=== PATIENT | male | born 1985 | race Caucasian/White ===

== ENCOUNTER → 2017-03-15 | Day surgery (SDC) | payer OTHER ==
[~2017-03-15] VITALS: Ht 170.2 cm; Wt 110.7 kg
[~2017-03-15] MED LIST: ACET325T51 PO; AMLO10TA3 PO; CHOL10008 PO; INFL100V IV; OXYC5TAB72 PO; POLY17PO6 PO; Sodium Chloride LOK Flush 10 mL Syringe IV PRN; [UNRECOGNIZED DRUG - REMARK]; fentaNYL-PF 50 mCg/mL 2 mL Inj IVPUSH PRN; remicade
[2017-03-15 12:42] VITALS: BP 149/91; PULSE 90; RESP 16; O2SAT 98
[2017-03-15] MEDS: 0.9% Sodium Chloride 1,000 ML IV SCH ×3 (12:50→15:15)
[2017-03-15 13:56] VITALS: BP 154/82; PULSE 97; RESP 12; O2SAT 93
[2017-03-15 14:06] VITALS: BP 146/80; PULSE 96; RESP 12; O2SAT 96
--- NOTE | 2017-03-15 14:14 | ENDO ---
[address] [address] ENDOSCOPY PROCEDURE PATIENT: JENNY BAILEY : 1985 MR#: [id number] ADMIT: 03/15/2017 JOB ID: [id number] DATE: 03/15/2017 TYPE OF OPERATION: 1. Esophagogastroduodenoscopy with biopsy. 2. Colonoscopy with biopsy. PREOP: Crohn disease, abnormal CAT scan and diarrhea. POSTOPERATIVE DIAGNOSIS(ES): 1. A 2 cm duodenal polyp found in the second portion, status post biopsy. 2. A colonic stricture that was seen at 30 cm with friable mucosa which was biopsied. The scope could not transverse through the stricture. ANESTHESIA: 1. Fentanyl 200 mcg. 2. Versed 10 mg IV administered. COMPLICATIONS: None. BLOOD LOSS: Minimal. DESCRIPTION OF PROCEDURE: After risks and benefits were explained to the patient, informed consent was obtained. After anesthesia administered, an upper endoscope was then inserted into mouth intubating the esophagus, stomach, second portion of duodenum. Mucosa carefully examined. After procedure was done, the scope withdrawn and procedure terminated. Colonoscope was then inserted from the rectum to the sigmoid colon at 30 cm. Mucosa carefully examined. Prep of the patient was fair. After procedure was done, the scope withdrawn and procedure terminated. FINDINGS: Upon inspection of the esophagus, the esophagus was normal without masses, ulcers, or lesions. Z-line located at 40 cm from incisors. Upon entering the stomach, the stomach also appeared normal without masses, ulcers or lesions. Retroflexion was normal. Duodenal bulb, first and second portion were normal, but there was a polyp seen in the second portion of the duodenum which was biopsied, approximately 2 cm in size. Biopsies also taken of the duodenum, antrum and body of stomach. Upon inspection of the anus, no masses, hemorrhoids, ulcers, fissures that were seen. Throughout the entire examination, there was friable mucosa and a stricture that was seen at 30 cm in which the scope could not pass. This area was biopsied. Retroflexion was not performed. IMPRESSIONS: 1. A 2 cm duodenal polyp seen in the second portion, status post biopsy. 2. Distal colonic stricture that was seen at 30 cm from the anus status post biopsy. The scope could not transverse. RECOMMENDATIONS: Await pathology results and general surgery consultation.
[2017-03-15 14:22] VITALS: BP 136/88; PULSE 97; RESP 12; O2SAT 96
[2017-03-15 14:42] VITALS: BP 137/79; PULSE 90; RESP 12; O2SAT 94
[2017-03-15 15:10] VITALS: BP 125/70; PULSE 82; RESP 12; O2SAT 92
--- NOTE | 2017-03-15 20:20 | CONS ---
[address] [address] CONSULTATION REPORT PATIENT: JENNY BAILEY : 1985 MR#: [id number] ADMIT: 03/15/2017 JOB ID: [id number] DATE OF SERVICE: 03/15/2017 CHIEF COMPLAINT: This is a 31-year-old male with a stricture of the sigmoid colon and a history of Crohn disease; this consultation is requested by Ulises Barclay MD, of Gastroenterology. HISTORY OF PRESENT ILLNESS: This is a 31-year-old male who has carried a diagnosis of Crohn disease for the past 20 years. His previous surgical history involves treatment of perirectal abscesses and fistulas, which occurred while he was on Remicade. He has undergone therapy with multiple medications including Remicade, Humira,Imuran, 6-mercaptopurine, Asacol, and Pentasa. He was seen by Ulises Barclay MD, on February 14 as an outpatient. He was having 6-8 bowel movements per day which were loose and nonbloody. He was scheduled for upper and lower endoscopy. Colonoscopy showed a stricture at 30 cm which could not be passed with the pediatric colonoscope. Upper endoscopy showed a 2 cm duodenal polyp. Both the stricture and the polyp were biopsied and pathology is pending. Recent CT scan reveals dilation proximal to the stricture of the sigmoid colon. PAST MEDICAL HISTORY: Crohn disease. Hypertension and anemia. PAST SURGICAL HISTORY: Incision and drainage of perirectal abscesses and fistulas. MEDICATIONS: Remicade, vitamin D3, amlodipine. ALLERGIES: No known drug allergies. FAMILY HISTORY: Cousins have had colitis. SOCIAL HISTORY: He lives in [place] with his mother, who is present today. He is not a smoker and denies alcohol use. He does not use recreational drugs. He is not currently employed. REVIEW OF SYSTEMS: Eleven-point review of systems is positive as noted in the HPI and is otherwise negative. PHYSICAL EXAMINATION: Heart rate 82, blood pressure 125/70, respiratory rate of 12, saturation 92% on room air. General: Awake, alert, no acute distress. Head: Normocephalic. Neck: Supple. Cardiac: Regular rate and rhythm, no murmurs, rubs, or gallops. Respiratory: Clear to auscultation bilaterally. Abdomen: Soft, moderately distended; he had just finished colonoscopy when I met him. Nontender. Extremities: No edema. Psychiatric: Normal cognition and judgment. Neurologic: No gross deficits. LABS: Labs dated March 01, 2017, showed hematocrit 34.8, white blood cell count of 4.2, platelets 392. Comprehensive metabolic panel is within normal limits. CT scan, performed March 12, 2017, shows inflammation and stricturing of the descending and sigmoid colon. The colon is dilated proximally to this and fecal material is within it. ASSESSMENT: A 31-year-old male with Crohn disease, refractory to at least six different medications including Remicade and Humira, who has a stricture in the descending/sigmoid colon that was not possible endoscopically. He has some dilation of bowel proximal to this on CT scan. He is currently tolerating a regular diet and tolerated a colonoscopy prep. RECOMMENDATIONS: Await pathology results from today's endoscopy. Based on the overall picture, I anticipate resection of the strictured portion of bowel will be necessary given that this has formed despite significant medical therapy. He does have followup in the office with one of my partners on Saturday, and I do recommend that he proceed with this visit while we wait for the pathology results to return. 45 minutes were spent on this patient visit today, >50% in counseling and/or coordination of care. ROSALBA
--- NOTE | 2017-03-21 16:34 | PATH ---
SURGICAL PATHOLOGY Attending Physician:Ulises Barclay MD CASE STATUS: Signed Out PATIENT NAME: JENNY BAILEY PID: [id number] : 1985 DATE COLLECTED:03/15/2017 00:00 SPECIMEN: 1: Duodenum, Biopsy 2: Duodenum, Biopsy 3: Stomach, Antrum, Biopsy 4: Gastric, Biopsy 5: Colon, Biopsy CLINICAL HISTORY: 1). DUODENAL POLYP X 1 2). DUODENAL BIOPSY 3). ANTRUM BIOPSY 4). GASTRIC BODY BIOPSY 5). COLON STRICTURE AT 30 CM FINAL DIAGNOSIS: 1.DUODENAL POLYP X1, BIOPSY: - POLYPOID FRAGMENT OF SMALL BOWEL MUCOSA WITH HYPERPLASTIC FEATURES, FEW DIALTATED CRYPTS AND MILD ACTIVE INFLAMMATION. - NO EVIDENCE OF GRANULOMAS. - Negative for dysplasia and malignancy. - Additional deeper levels examined. 2.DUODENAL BIOPSY: - SMALL BOWEL MUCOSA WITH NO DIAGNOSTIC ABNORMALITY. - Negative for active inflammation, features of sprue, granulomas, dysplasia, and malignancy. 3.ANTRUM, BIOPSY: - GASTRIC ANTRAL-TYPE MUCOSA WITH CHRONIC ACTIVE GASTRITIS. - No evidence of granulomas. - Negative for Helicobacter pylori microorganisms by immunohistochemistry. - Negative for intestinal metaplasia. - Negative for dysplasia and malignancy. 4.GASTRIC BODY BIOPSY: - GASTRIC BODY-TYPE MUCOSA WITH CHRONIC FOCALLY ACTIVE GASTRITIS. - No evidence of granulomas. - Negative for Helicobacter pylori microorganisms by immunohistochemistry. - Negative for intestinal metaplasia. - Negative for dysplasia and malignancy. 5.COLON STRICTURE AT 30 CM, BIOPSY: - FRAGMENTS OF COLONIC MUCOSA WITH PATCHY, MILDLY ACTIVE COLITIS, WITH MILD CRYPT ARCHITECTURAL DISTORTION. - MULTIPLE NON-CASEATING GRANULOMAS ARE IDENTIFIED. - Negative for dysplasia and malignancy. - See comment. [id number] NOTE: Part 5) designated colon stricture at 30 cm, demonstrates patchy mildly active colitis with mild crypt architectural distortion, and scattered noncaseating granulomas. In the proper clinical setting and following exclusion of infectious etiology, the histopathologic appearance could support a clinical impression of idiopathic inflammatory bowel disease, favor Crohn' s. The differential diagnosis also includes medication and medication-related mucosal injury. As part of routine supplier quality engineer sections of this case were also reviewed by Dr. Stroud who agrees with the above interpretation. GROSS DESCRIPTION: The specimen is received in five formalin filled containers labeled with the patient's name. 1). The specimen is labeled "duod polyp" and consists of 2 portions of tissue which aggregate to 0.2 x 0.2 x 0.2 CM. The specimen is entirely submitted in cassettes 1A. 2). The specimen is labeled "duod" and consists of 2 portions of tissue which aggregate to 0.3 x 0.2 x 0.2 CM. The specimen is entirely submitted in cassette 2A. 3). The specimen is labeled "antrum" and consists of a 0.4 x 0.3 x 0.3 CM portion of tissue which is entirely submitted in cassette 3A. 4). The specimen is labeled "body" and consists of 2 portions of tissue which aggregate to 0.3 x 0.3 x 0.2 CM. The specimen is entirely submitted in cassette 4A. 5). The specimen is labeled "stricture 30 CM" and consists of 3 portions of tissue which aggregate to 0.2 x 0.2 x 0.2 CM. The specimen is totally submitted in cassette 5A. 03/18/2017DC MICRO DESCRIPTION: 3. & 4. An immunohistochemical stain was performed to evaluate for Helicobacter pylori microorganisms. A control stain showed appropriate reactivity. This test was developed and its performance characteristics determined by [employer]. It has not been cleared or approved by the U. S. Food and Drug Administration. The FDA has determined that such clearance or approval is not necessary. This test is used for clinical purposes. It should not be regarded as investigational or for research. ICD-9 CODES: CPT CODES: 1: 93473 2: 55219 3: 30581, 73243 4: 75434, 68173 5: 46246 Electronically Signed Out Saji Arredondo MD [facility] Pathology [facility] [address], [place] [address] Technical component performed at [facility], [address], [place], [address]
== END | disposition home or self-care (01) ==
LOC: END 00:13
PROVIDERS: ATTEND Internal Medicine Gastroenterology
DX: K52.89 Other specified noninfective gastroenteritis and colitis (principal); K29.50 Unspecified chronic gastritis without bleeding; R19.7 Diarrhea, unspecified; K50.819 Crohn's disease of both small and large intestine with unspecified complications; K61.1 Rectal abscess; Z80.0 Family history of malignant neoplasm of digestive organs; K31.7 Polyp of stomach and duodenum; K56.69 Other intestinal obstruction
CPT/HCPCS: 43239; 45380; 88305; 88342; 99152; 99153; J2250; J3010; J7030

== ENCOUNTER 2017-03-28 07:08 | Inpatient (IN) | payer OTHER, MEDICAID ==
[2017-03-28] VITALS (18 sets, daily range): BP systolic 128–155; BP diastolic 69–96; PULSE 87–112; RESP 14–29; O2SAT 92–98
[~2017-03-28] VITALS: Ht 167.6 cm; Wt 114.4 kg
[~2017-03-28 07:08] MED LIST changes: -CHOL10008 PO; +CeFAZolin Inj 2 GM in IV Premix 1 EACH IV ONE; -INFL100V IV; +Lactated Ringer's 1,000 ML IV SCH; -OXYC5TAB72 PO; -POLY17PO6 PO; -Sodium Chloride LOK Flush 10 mL Syringe IV PRN; -fentaNYL-PF 50 mCg/mL 2 mL Inj IVPUSH PRN
[2017-03-28] MEDS ORDERED: CeFAZolin 2 Gm/50 mL D5W Duplex Bag IV ONE (07:11)
[2017-03-28] MEDS ORDERED: metroNIDAZOLE 500 mg/100 mL NS Premix IV ONE (07:12)
[2017-03-28] MEDS ORDERED: Lactated Ringer's 1,000 ML IV ONE ×2 (08:02→17:45)
[2017-03-28] MEDS ORDERED: Lactated Ringer's 500 ML IV PRN (08:44)
[2017-03-28] MEDS ORDERED: Lactated Ringer's 1,000 ML IV SCH (08:44)
--- NOTE | 2017-03-28 08:44 | PCM.HPANE ---
Patient Data Date of Service: Mar 28, 2017 Surgeon Admitting Provider: Attending Provider:Negrita Rivas MD Primary Care Physician:Maria Eugenia Melgar Other Provider:Estefani Kim Anesthesia Reason for Visit Sigmoid Colon Stricture Ht/WT & BMI Height (Feet): 5 Height (Inches): 6.00 Weight (Kilograms): 113 Body Mass Index 40.00 Allergies Coded Allergies: No Known Allergies (Unverified , 03/21/17) Past Anesthesia History Anesthesia History: Positive for:: Anesthesia Reactions (wakes up with propofol , versed ), Denies:: Abnormal Airway, Difficult Intubation, Fam Anesthesia Reaction, Fam Malignant Hypertherm, Malignant Hyperthermia Diabetes History Hx Diabetes?: No MRSA MRSA: No Medications Hypertension Medication: Yes Home Meds Incl Beta Zachary: No Reported Medications ["eco-drink"] No Conflict CheckUnknown Dose DAILY 03/21/17 Acetaminophen 325 Mg [id number] Mg PO Q4H PRN For Pain Ref 0 03/21/17 Amlodipine 10 Mg [id number] Mg PO DAILY Ref 0 03/21/17 [remicade] No Conflict CheckUnknown Dose [id number] 03/21/17 Discontinued Reported Medications Cholecalciferol (Vitamin D3) (Vitamin D3)1,000 Unit Tab.chew1,000 Unit PO DAILY 03/13/17 Amlodipine 10 Mg [id number] Mg PO DAILY Ref 0 03/13/17 History History of ENT Problems?: No HEENT History: Positive for:: Hearing Problem (hx of tympanoplasty / left ear) Denies:: Abnormal Airway Cataracts Difficult Intubation Dysphagia Glaucoma Sinus Problem TMJ Denture Type: None Teeth Condition: Broken Teeth Hx of Heart Problems?: Yes Cardiovascular History: Positive for:: Heart Murmur (as child- no longer heard ) Hypertension Denies:: AICD Atrial Fibrillation Chest Pain Coronary Artery Disease Edema Irregular Heartbeat Pacemaker Peripheral Vascular Rheumatic Fever Valvular Heart Disease Hx of Respiratory Problem?: Yes Respiratory History: Positive for:: Use of C-PAP Machine Denies:: Asthma COPD Cough Hemoptysis Oxygen Administration Pneumonia Tuberculosis Hx Neurologic Problems?: Yes Neurological History: Positive for:: Headaches (low grade headaches usually - MRI negative) Denies:: CVA Dementia Multiple Sclerosis Parkinson's Disease Seizures TIA Hx of GI Problems?: Yes Other GI Pertinent History: crohns with sigmoid colon stricture current admission problem - hx of remicade infusions q 8weeks- last known infusion 01/2017 Hx of Problems?: No Genitourinary History: Denies:: Kidney Stones Urinary Tract Infection Male Hx: Denies:: Prostate Problems Scrotal Mass Testicular Surgery Skin History: Denies:: History Skin Disorders? Pressure Ulcers Hx Musculoskeletal Problems?: Yes Musculoskeletal History: Denies:: Back Injury (back pains while sleeping) Fibromyalgia Joint Replacement Myasthenia Gravis Osteoarthritis Hx of Psycho/Social Problems?: Yes Psycho Social History: Positive for:: Anxiety Hx Depression Hx Surgeries?: Yes (tympanoplasty, perianal fistula x 2) Hx Any Other Health Problems?: Yes Other History: Denies:: Cancer Thyroid Disease History Blood Transfusions: Positive for:: Accept Blood Products? Blood Transfusions (many years ago- pre teen r/t crohns disease) Denies:: Blood Transfuse Reaction Hx Diabetes: No Hx Alcohol Use: YesAlcoholic Drinks Per Day: once yearly maybeHx Substance Use : Yes (occassional marijuana)Have You Smoked inLast 12 mo: No Stop/Bang Treated for Sleep Apnea?: Yes Do You Have a CPAP Machine?: Yes S-Snoring: Do You Snore Loudly: No T-Tired: feel tired, fatigued: No O-Obsered: Observed not breath: No P-Blood Pressure: treated: Yes B- Body Mass Index > 35 kg/m2: No A- Age over 50: No N- Neck Large Circumference: No G- Gender Male: Yes MASON Total Score: 2 Risk Assessment Category Category 1A: Patient has history of documented sleep apnea, and HAS NOT received any narcotic, sedative or anesthesia administration during this stay. Category 1B: Patient has history of documented sleep apnea, and HAS received any narcotic , sedative or anesthesia administration during this stay Category 2: Patient has SUSPECTED Obstructive Sleep Apnea, and HAS received any narcotic , sedative or anesthesia administration during this stay. Category 3: Patient has SUSPECTED Obstructive Sleep Apnea and HAS NOT received narcotic, sedative or anesthesia administration during this stay. Category 4: Outpatient in Procedural Areas with known sleep apnea or who screen positive for High Risk via the STOP/BANG questionnaire. Exam Exam Vital Signs Vital Signs Date Time Temp Pulse Resp B/P Pulse Ox O2 Delivery O2 Flow Rate FiO2 03/28/17 08:04 36.7 87 17 151/94 98 Room Air General Appearance: Alert, Oriented X3, Cooperative HEENT/AIRWAY: MP 2, Neck Movement (Slightly thick, Full), Mouth Opening Lungs: Clear to Auscultation, Normal Air Movement Heart: Regular Rate/Rhythm, Normal S1, Normal S2 Meds/Labs/Diagnostics Admission Meds Current Medications Lactated Ringer's (Lr) 1,000 ml @ ud STK-MED ONCE IV Last administered on t 08:02; Start 03/28/17 at 08:02; Stop 03/28/17 at 08:03; Status DC Plan Impression Patient chart reviewed, patient interviewed and anesthestic plan with risks, benefits, and alternatives discussed, and informed consent obtained. NPO per Anesth. Guidelines: Yes ASA Physical Status: ASA3 Severe Disease (morbid) Anesthetic Plan: GA Bene/Risks/Altern/Consents: Yes HP Complete Prior to Induction: Yes Daniel Martinez MD Mar 28, 2017 08:44
[2017-03-28] MEDS ORDERED: MetoCLOpramide 5 mg/mL 2 mL Inj IVPUSH PRN ×2 (08:45→18:10)
[2017-03-28] MEDS ORDERED: Labetalol 5 mg/mL 20 mL Inj IV PRN (08:45)
[2017-03-28] MEDS ORDERED: Atropine 0.4 mg/mL Inj IVPUSH PRN (08:45)
[2017-03-28] MEDS ORDERED: Phenylephrine 10,000 mCg/mL Inj IVPUSH PRN (08:45)
[2017-03-28] MEDS ORDERED: Ondansetron 2 mg/mL 2 mL Inj IVPUSH PRN (08:45)
[2017-03-28] MEDS ORDERED: Dexamethasone 4 mg/mL Inj IVPUSH PRN (08:45)
[2017-03-28] MEDS ORDERED: EPHEDrine Sulfate 50 mg/mL Inj IVPUSH PRN (08:45)
[2017-03-28] MEDS ORDERED: hydrALAZINE 20 mg/mL Inj IVPUSH PRN (08:45)
[2017-03-28] MEDS ORDERED: Bupivacaine-MPF 0.5% 30 mL Inj INFILTRATE ONE (10:25)
[2017-03-28] MEDS ORDERED: HYDROGEN PEROXIDE 3% TOPICAL ONE (10:25)
[2017-03-28] MEDS ORDERED: Bupivacaine-MPF 0.25% 30 mL Inj INFILTRATE ONE (11:28)
[2017-03-28] MEDS ORDERED: Bupivacaine Liposome 1.3% 20 mL Inj ONE (16:50)
[2017-03-28] MEDS ORDERED: Bupivacaine Liposome 1.3% 20 mL Inj INFILTRATE ONE (17:14)
[2017-03-28] MEDS: fentaNYL-PF 50 mCg/mL 2 mL Inj IVPUSH PRN ×4 (18:15→19:35)
[2017-03-28] MEDS: HYDROmorphone 1 mg/mL Inj IVPUSH PRN ×4 (18:20→19:35)
--- NOTE | 2017-03-28 18:28 | PCM.SURGPO ---
Immediate Operative Note Date of Surgery: Mar 28, 2017 Pre Operative Diagnosis Crohn's disease with sigmoid stricture and perianal fistula Post Operative Diagnosis Crohn's disease with sigmoid stricture and perianal fistula Procedure 1. Rectal exam under anesthesia with seton placement 2. Flexible sigmoidoscopy 3. Laparoscopic, hand assisted sigmoid and left colectomy with Anamika's procedure Surgeon and C S S Representative Surgeon: Negrita Rivas MD Assistants: Neema Golden MD and JACKY Montalvo Findings 1. Perianal fistula 2. Mucosal inflammation and friability from 25 to 10 cm from the anal verge and from 5cm to the anal verge. 3. 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 Severe inflammatory Crohn's disease of the sigmoid colon with creeping fat and stricture at 25cm from the anal verge with mucosal inflammation and friability Complications There were no periprocedural complications identified. Surgical Specimen Removed: Yes (Sigmoid colon and left colon) Specimen sent to Pathology: Yes Anesthetic Administered: GA Grafts, Implants: None Output, Estimated Blood Loss: 50 Blood Admin during surgery: No Neema Golden MD Mar 28, 2017 18:28
--- NOTE | 2017-03-28 18:51 | PCM.ANEP1 ---
Post Anesthesia PACU Phase 1 Assessment Date of Service: Mar 28, 2017 Vital Signs Vital Signs Date Time Temp Pulse Resp B/P Pulse Ox O2 Delivery O2 Flow Rate FiO2 03/28/17 18:35 96 24 150/75 95 Simple Mask 8 03/28/17 18:30 95 24 150/84 95 Simple Mask 8 03/28/17 18:25 96 24 128/69 94 Simple Mask 8 03/28/17 18:20 97 24 136/89 94 Simple Mask 8 03/28/17 18:15 92 22 146/96 94 Simple Mask 8 03/28/17 18:10 37.2 90 14 155/82 94 Simple Mask 8 Anesthetic Administered: GA Level of Alertness: Sleepy, easy to arouse HERBERT's with Equal Strength: Yes Pain: Yes Nausea or Vomiting: No CV Function & Hydration Stable: Yes Airway Device: Oxygen Delivery: Simple Mask Lungs: Normal Air Movement PACU Phase 2 Assessment Complications: No Follow up Care: N/A Patient Instructions Provided: N/A Daniel Martinez MD Mar 28, 2017 18:51
[2017-03-28 19:19] LABS: BASOPHILS % (AUTO) 0.1 % (0-3); EOSINOPHILS % (AUTO) 0.1 % (0-5); MONOCYTES % (AUTO) 11.8 % (4-12); Mean Corpuscular Hemoglobin 23.7 pg (27.0-35.0); Mean Corpuscular Volume 76.5 fL (81-100); NEUTROPHILS % (AUTO) 85.9 % (40-74); Platelet Count 463 bil/L (150-400)
[2017-03-28] MEDS ORDERED: fentaNYL-PF 50 mCg/mL 2 mL Inj ONE (19:59)
[2017-03-28] MEDS ORDERED: Ondansetron 2 mg/mL 2 mL Inj ONE (19:59)
[2017-03-28] MEDS ORDERED: Rocuronium 10 mg/mL 5 mL Inj ONE ×2 (19:59)
[2017-03-28] MEDS ORDERED: Neostigmine 1 mg/mL 10 mL Inj ONE (19:59)
[2017-03-28] MEDS ORDERED: Propofol 10,000 mCg/mL 20 mL Inj ONE (19:59)
[2017-03-28] MEDS ORDERED: Glycopyrrolate 0.2 MG/ML 1mL Inj ONE (19:59)
[2017-03-28] MEDS ORDERED: Labetalol 5 mg/mL 20 mL Inj ONE (19:59)
[2017-03-28] MEDS ORDERED: HYDROmorphone 1 mg/mL Inj ONE (19:59)
--- NOTE | 2017-03-28 20:20 | OP ---
[address] [address] OPERATIVE REPORT PATIENT: JENNY BAILEY : 1985 MR#: [id number] ADMIT: 03/28/2017 JOB ID: [id number] DATE OF SURGERY: 03/28/2017 PREOPERATIVE DIAGNOSIS(ES): Colonic stricture. POSTOPERATIVE DIAGNOSIS(ES): Colonic stricture. PROCEDURE PERFORMED: Cystoscopy and bilateral ureteral stent placements. SURGEON: Yoly Arrieta MD FINDINGS: Normal appearing bladder. Bilateral orthotopic ureteral orifices. ANESTHESIA: General. ESTIMATED BLOOD LOSS: None. DRAINS: 1. 5-Martiniquais open-ended Pollack catheters as bilateral ureteral stents. 2. A 16-Martiniquais Mercedes catheter to the bladder. SPECIMENS: None. COMPLICATIONS: None. CONDITION: Stable. INDICATION FOR THE PROCEDURE: The patient is a 31-year-old gentleman who is to undergo surgery today with Dr. Rivas. She has requested bilateral ureteral stents for intraoperative identification of the ureters. I spoke with the patient and his mother the nature of ureteral stents and risks of. He wished to proceed. DESCRIPTION OF PROCEDURE: After informed consent was obtained, the patient was taken to the operating room. A time-out was performed identifying correct patient, surgical site, and procedure. General anesthesia was smoothly induced. He was placed in the lithotomy position and all pressure points were identified and appropriately padded. His genitals were then prepped and draped in usual sterile fashion. A 22-Martiniquais rigid cystoscope was applied to the patient's urethra and advanced smoothly. The bladder neck was somewhat high riding. Entry into the bladder was gained. The bladder was drained. Both ureteral orifices were seen in orthotopic position. The bladder appeared otherwise normal. The right ureteral orifice was cannulated with a 5-Martiniquais open-ended Pollack catheter. It was advanced until gentle resistance was met. The cystoscope was then removed. Attention was then turned to the left ureteral orifice and with cystoscopic guidance the left ureteral orifice was cannulated with the second Pollack catheter which was also advanced until gentle resistance was met. The cystoscope was then removed. A 16-Martiniquais Mercedes catheter was applied to the patient's urethra and advanced into the bladder. It was insufflated with 10 cc of sterile water. It was set to dependent drainage. The ureteral catheters were then adhered to the Mercedes with a 2-0 silk tie. The patient was then left in the care of the primary service. He appeared to tolerate the procedure well without apparent complications. ROSALBA
[2017-03-28] MEDS: HYDROmorphone 0.5 mg/0.5 mL iSecure Syringe IVPUSH PRN (21:04)
[2017-03-28] MEDS: Dextrose 5% Lactated Ringer's 1,000 ML IV SCH (21:11)
[2017-03-28] MEDS: Ondansetron 2 mg/mL 2 mL Inj IVPUSH PRN (21:50)
[2017-03-29] VITALS (9 sets, daily range): BP systolic 137–157; BP diastolic 77–92; PULSE 101–120; RESP 16–22; O2SAT 91–95
--- NOTE | 2017-03-29 00:02 | OP ---
[address] [address] OPERATIVE REPORT PATIENT: JENNY BAILEY : 1985 MR#: [id number] ADMIT: 03/28/2017 JOB ID: [id number] DATE OF SURGERY: 03/28/2017 PREOPERATIVE DIAGNOSIS(ES): Stricture secondary to Crohn's disease of the sigmoid colon; Crohn's disease of the rectum and perianal region. POSTOPERATIVE DIAGNOSIS(ES): Stricture secondary to Crohn's disease of the sigmoid colon; Crohn's disease of the rectum and perianal region. PROCEDURE PERFORMED: 1. Laparoscopic resection of left colon and sigmoid colon with end left colostomy. 2. Flexible sigmoidoscopy. 3. Perianal exam under anesthesia and rectal exam under anesthesia with seton placement for [id number]. 4. Liposomal bupivacaine blocks of rectus sheath. SURGEON: Negrita Rivas MD. ICE SKATING COACH: 1. Neema Golden MD, R3. 2. Mary Cullen MS3. HISTORY OF PRESENT ILLNESS: This is a 31-year-old male who has had a diagnosis of Crohn's disease for the past 20 years. He has had multiple perrectal abscesses and fistulas which have occurred while he was on multiple medical therapies. These have included Remicade, Humira, Imuran, 6-mercaptopurine, Asacol, and Pentasa. He was worked up by Dr. Deny MD, of Gastroenterology. A colonoscopy was performed on March 15, 2017. I was asked to see the patient urgently because at that time he had a severe stricture of the sigmoid colon at 30 cm, which could not be passed with an endoscope, and on CT scan he had proximal dilation. However, at that time, he was not having symptoms of obstruction so semi-urgent surgery was agreed upon before he would become obstructed. Prior to surgery, he underwent antibiotic and mechanical bowel prep, and all modifiable risk factors were addressed via SCOAP protocol. FINDINGS: 1. Severe scarring of the perianal region and distal rectum was a large open fistula in the left anterolateral position. 2. Stricture of the colon at 25 cm from the anal verge. 3. Crohn's involvement of the sigmoid colon and rectum as noted below. 4. 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 The appendix was in the upper midline. DESCRIPTION OF PROCEDURE: The patient was brought to the operating room and placed in supine position. General anesthesia was induced. A warming blanket and SCDs were placed. He was repositioned into lithotomy position. Ureteral stents were placed by Dr. Arrieta. Please see her separate dictation for details. After stent placement, he was positioned into high lithotomy. Examination under anesthesia revealed severe scarring of the perianal region and distal rectum. He had a very large wide open fistula at the left anterolateral position extending from 2 cm distal to the anal verge to 2 cm proximal to the anal verge. A blue vessel loop was placed through the fistula as a seton and was tied to itself. 0.5% Marcaine was injected to the perianal tissues for analgesia. Attention was turned to flexible sigmoidoscopy. The distal rectum was severely inflamed. The proximal rectum was moderately inflamed. From 5-15 cm there was mild inflammation from Crohn's. From 15-20 cm was moderate inflammation, and from 20-25 cm there was severe inflammation and friability. Due to these findings, particularly the fact that the entire sigmoid colon and rectum appeared at least mildly involved with Crohn's disease, the decision was made to not perform an anastomosis and to perform a Anamika's procedure. This was after discussion with my partner, Dr. Francisco Vuong, who had also met the patient in the clinic preoperatively. The patient was then repositioned into low lithotomy. The operative field was clipped, prepped, and draped in sterile fashion. A preprocedural pause was performed to confirm correct patient and site. A transverse infraumbilical incision was made and the abdomen was entered under direct vision using Neftaly technique. The abdomen was insufflated. Ultimately, four additional port sites were placed in the right lower quadrant, right upper quadrant, left lower quadrant, and low midline. The right lower quadrant port site was ultimately upsized to a 12 mm port for entrance of the stapler. Examination of the intra-abdominal contents revealed severe inflammation of the colon and its mesentery. Additionally, he appeared to have a degree of malrotation, with the cecum in the right upper quadrant, appendix traversing from the right upper quadrant to the midline, and the remainder of the colon on the left. The proximal colon was dilated but appeared otherwise normal. The midportion of the left colon was severely inflamed down to the rectum, which from an exterior view, appeared relatively normal. The decision was made to proceed with the distal dissection first and proceed proximally. A portion of rectum that had the most normal appearance was chosen near the pelvic brim and the peritoneum overlying it was divided. Dissection proceeded close to the colon itself and posterior to it to create a staple site which would leave the patient with an approximate 15 cm stump. Once an adequate window had been created and the ureter was confirmed to be carefully preserved, an Endo- FLAKITA stapler, 60 mm in length with a blue load, was fired. Two staple fires were required. Once the proximal end was divided, dissection proceeded from distal to proximal. There was very severe inflammation of the mesentery and it was extraordinarily thick. Dissection proceeded in this manner for greater than one hour and as progress slowed, a hand port was used via a 4 cm vertical incision above the umbilicus. This spread out the dissection and helped to mobilize the colon which had some inflammatory tissue attaching it to the lateral wall of the abdomen ( there was no formal white line of Toldt in this particular patient due to his malrotation) and also facilitated dissection of the omentum off of the proximal left colon (his transverse colon was verticalized given that the cecum during the operation was essentially lying in the midline of the upper abdomen). A LigaSure device was used to take the mesentery. Although I tried to stay close to the colon itself, the mesentery was so thick that at times I was dissecting higher up on the vasculature. Therefore, the CHACHA was dissected at its base and it was taken with the Endo FLAKITA stapler with a vascular load. The remainder of the mesentery was divided with the LigaSure. The proximal site of division was chosen based on normal appearing colon that was proximal to the site of stricture. This was divided with an Endo FLAKITA stapler. The remainder of the mesentery was divided from proximal to distal. The specimen was removed through the hand port site. Because of the poor quality of tissue, the large size of the colon, and the small size of the hand port site, the colon actually fell into two pieces as it was being extracted. This was through the wound protector. It was; therefore, sent as two specimens after it had been opened on the back table, the distal staple site was confirmed to be at the region of healthiest tissue, and the proximal and distal ends had been marked. Careful inspection of the abdomen laparoscopically revealed good hemostasis. There was a small amount of pooling blood in the left upper quadrant and Surgicel was placed in that location and it remained hemostatic. An ostomy site was then chosen in the left upper quadrant. The proximal colon was checked for reach and there was good laxity to create an ostomy without tension. A circular defect was created in the skin, subcutaneous tissue was dissected with electrocautery, and the fascia was opened to create a site that was large enough to pass the colon but small enough to avoid a future parastomal hernia. The proximal colon was then brought out and was checked that there was no twisting. Laparoscopically, liposomal bupivacaine blocks were then performed in the rectus sheath lateral to the hand port site. The right lower quadrant port site was then closed with an interrupted 0 PDS stitch laparoscopically. The infraumbilical port site was closed with an interrupted [id number] 0 PDS stitch in open fashion. The hand port site was closed with running 0 PDS stitches with 0.5 cm bites. The wound was then copiously irrigated. The hand port site was closed with several 3-0 Vicryl deep dermal stitches and running 4-0 Monocryl stitches. Interrupted Monocryl stitches were used to close the remainder of the port sites and sterile dressings were placed. Dermabond was placed on the hand port site. Attention was turned to ostomy maturation. The ostomy was matured using 3-0 Vicryl with several Talia style stitches as is the preference of the ostomy staff at this institution. An ostomy bag was placed. The patient was then awakened from general anesthesia and taken to the postoperative care unit in good condition after the ureteral stents had been removed. SPECIMENS: Left colon and sigmoid colon, sent for final pathology. ESTIMATED BLOOD LOSS: 50 mL. COMPLICATIONS: None. A modifier 22 is requested because, due to the severe inflammation and anomalous anatomy, this case required more than 50% the usual amount of time. [facility]
[2017-03-29] MEDS: HYDROmorphone 0.5 mg/0.5 mL iSecure Syringe IVPUSH PRN ×2 (00:35→04:42)
[2017-03-29] MEDS: Heparin 5,000 Unit/mL Inj SUBQ SCH ×3 (00:35→16:52)
[2017-03-29] MEDS: Ondansetron 2 mg/mL 2 mL Inj IVPUSH PRN ×2 (00:51→04:46)
--- NOTE | 2017-03-29 03:37 | NUR ---
Post-Op Patient received from PACU at 2009 Addendum: 03/29/17 at 0345 by IVON BLANCO RN Patient came to the room, mother at bedside. No belongings transferred, as mother took them with her. Patient had dependent transfer to bed with slide board. Arrived on 8L O2. Currently on 4L 02 with home CPAP. Patient oriented to room and call light. Reports pain 7-8/10 upon arrival. Post-intervention able to maintain pain at 4/10. All lap site dressings clean/dry/intact. Upon arrival, minimal sanguineous drainage in colostomy. Paged on-call surgeon for clarification on Tylenol order. Currently awaiting call-back. Bed down, side-rails up, call light in reach. Care continues.
[2017-03-29 06:07] LABS: BASOPHILS % (AUTO) 0.2 % (0-3); EOSINOPHILS % (AUTO) 0 % (0-5); MONOCYTES % (AUTO) 15.1 % (4-12); Mean Corpuscular Hemoglobin 23.6 pg (27.0-35.0); Mean Corpuscular Volume 76.4 fL (81-100); NEUTROPHILS % (AUTO) 78.4 % (40-74); Platelet Count 444 bil/L (150-400)
[2017-03-29] MEDS: HYDROmorphone PCA 0.2 mg/mL 30 mL Inj IV PRN (07:55)
[2017-03-29] MEDS: Dextrose 5% Lactated Ringer's 1,000 ML IV SCH ×2 (08:02→23:41)
[2017-03-29] MEDS: Acetaminophen IV 1,000 MG in IV Premix 1 EACH IV SCH ×3 (08:03→23:10)
--- NOTE | 2017-03-29 08:39 | PCM.PNSURG ---
Subjective Date of Service: Mar 29, 2017 Date of Service: Mar 29, 2017 Visit Information: Reason for Visit Sigmoid Colon Stricture Surgery/Surgery Date Post-Op Day # 1 Date of Admission: Mar 28, 2017 at 19:58 Hospital Day # 1 Subjective: Emigdio reports lower abdominal discomfort and poor sleep overnight. He did have some nausea which improved with zofran. He has been tolerating sips of clear liquids and ice chips without emesis. He has not been out of bed yet. No gas or stool in the ostomy. Good urine output overnight. Post operative labs with stable hematocrit and down trending post operative leukocytosis. Afebrile, VSS, no acute events overnight. Objective Vital Sign- Last 8 Hours Date Time Temp Pulse Resp B/P Pulse Ox O2 Delivery O2 Flow Rate FiO2 03/29/17 04:34 36.9 119 20 145/85 93 Room Air 03/29/17 00:36 37.6 120 20 157/92 95 CPAP Intake and Output- Last 8 Hour 03/29/17 Cumulative From/Thru 07:00 03/21/17 10:25 - 03/29/17 06:34 Intake Total 1257 ml 4007 ml Output Total 850 ml 2150 ml Balance 407 ml 1857 ml Intake Oral 625 ml 625 ml IV Total 632 ml 3382 ml Output Urine Total 850 ml 2050 ml Estimated Blood Loss 100 ml # Bowel Movements 0 0 General: Alert, Oriented X3, Cooperative, No Acute Distress Lungs: Clear to Auscultation, Normal Air Movement Heart: Regular Rate/Rhythm, Normal S1, No Murmurs/Rubs/Gallops Abdomen: Other (Distended, tender to palpation in the RLQ and LLQ. End colostomy - stoma is pink with serosanguinous fluid in bag, no gas or stool, appliance adherent well and skin protected. Port site incisions c/d/i with steri strips and bandaids in place. Upper midline incision with dermabond dressing.) Neuro: Grossly Neurologically Intact Catheters: Urethral 2 Way Sheldon Result Diagram: 03/29/1740 03/29/17539 Assessment & Plan Impression 31 yo M with Crohn's disease and distal sigmoid stricture s/p EUA, perianal fistula seton placement, flexible sigmoidoscopy and laparoscopic hand assisted sigmoid and left colectomy with Anamika's procedure. 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 FEN/GI: Continue D5LR at 80cc/hr. Anti emetics prn. Clear liquid diet today - will not advance at this time as he is distended; will consider advancement to full liquids this afternoon. Miralax daily. RENAL: Sheldon to gravity. After ambulates this morning, may discontinue sheldon catheter. HEME/ID: Expected post operative leukocytosis almost normalized this morning, afebrile, vital signs stable. Will continue to observe. No additional labs.Hct stable, minimal intraoperative blood loss. CV: Resume home amlodipine 10mg daily. PULM: Home CPAP at night. Incentive spirometry 10x/hr. MSK: Ambulate TID. If not mobilizing well will order Physical Therapy - but needs to be walking at least three times daily to encourage bowel function and to expedite post operative recovery. If pain is a limited factor we will work to optimize pain control. WOUND: Ostomy care and teaching. Wound care consult placed. Encourage patient to begin ostomy care and bag changes to ensure comfort at discharge. DISPO: Awaiting return of bowel function. Likely discharge early next week if progressing well. I examined this patient and agree with the note as dictated above by Dr. Golden. ERAS protocol although we are adding IV analgesia today. VTE Prophylaxis: Sub-Q Heparin (Unfractionated) Resuscitation Status: CPR: Attempt Resuscitation Neema Golden MD Mar 29, 2017 08:39 Negrita Rivas MD Mar 29, 2017 15:51
--- NOTE | 2017-03-29 08:42 | NUR ---
Sheldon DC'd Sheldon DC'd at 0835. Patient tolerated removal of sheldon. Slight blood on tip of sheldon. Call light, tray table, and urinal within reach. Will continue to monitor patient hourly.
--- NOTE | 2017-03-29 12:09 | PCM.HPMED ---
Subjective Date of Service Mar 29, 2017 Primary Provider: Admitting Physician: Negrita Rivas MD Primary Care Physician: Maria Eugenia Melgar Attending Physician: Negrita Rivas MD Admit Status: Full Admit Chief Complaint: Crohn's disease History of Present Illness: GASTROENTEROLOGY NOTE: Attending Physician: Ulises Barclay MD Resident Physician: Janice Barros DO Stanley Palmer is a 31-year-old gentleman with a history of hypertension, obstructive sleep apnea treated with CPAP, and Crohn's disease since the age of 11 complicated by perirectal abscesses and fistulas while on Remicade who presented to [facility] for bowel resection after outpatient evaluation revealed a sigmoid colon stricture at 30cm from the anus. In the past, the patient has tried 6-mercaptopurine and prednisone, Pentasa, Asacol, and Imuran without any relief. He was reportedly placed on Remicade at age 20 which was stopped for six months and he was placed on Humira instead but he is unsure why. Then in 2014 he was started back on Remicade and had been receiving this every 8 weeks prior to admission. Patient reports 6-8 bowel movements per day at baseline that are typically loose and non-bloody. He has a history of perirectal abscesses and fistulas that have required multiple incision and drainages. Most recently he was seen at [facility] and underwent incision and drainage of perirectal abscess on 01/21. At that time a CT scan showed thickening of the terminal ileum and inflammatory changes from the transverse colon to the proximal sigmoid colon. He states that he continued to have symptoms and on a colonoscopy showed a stricture in the sigmoid colon 30cm from the anus. He is now postoperative day 1 from a laprascopic left colon and sigmoid colon resection with colostomy. Currently he states that his abdominal pain is well controlled and worse with movement. He is tolerating his diet and reports mild nausea following the surgery without vomiting. He denies fever, chills, and chest pain. He notes mild shortness of breath which he attributes to limited inspiration secondary to abdominal pain. He states that does feel a little bloated but states that he has not passed any gas and there has not been any drainage in the colostomy bag. Review of Systems: A comprehensive review of systems was conducted with the patient and found to be negative except as above in the History of Present Illness. Allergies Coded Allergies: No Known Allergies (Unverified , 03/21/17) Home Medications Amlodipine 10mg po daily Vitamin D3 5,00 IU daily Remicade IV infused q8wks Metronidazole preoperative Acetaminophen prn PMH Crohn's disease since age 11 complicated by perirectal abscesses and fistulas Hypertension Obstructive sleep apnea, nightly CPAP Anemia Heart murmur . Surgical History Incision and drainage of perirectal abscesses and fistulas. Upper endoscopy 6yrs ago and colonoscopy 2yrs ago Laparoscopic resection of left colon and sigmoid colon with end left colostomy. Flexible sigmoidoscopy. Seton placement for [id number]. Family History No known family history of heart disease, stroke, inflammatory bowel disease, colon or any other cancers. Aunt with Celiac disease Social History Hx Alcohol Use: Yes Alcoholic Drinks Per Day: once yearly maybe Hx Substance Use: No Hx Tobacco Use: No Living Arrangement: with Family (Lives in [place] ) Exam Vital Signs Vital Sign - Last Date Time Temp Pulse Resp B/P Pulse Ox O2 Delivery O2 Flow Rate FiO2 03/29/17 04:34 36.9 119 20 145/85 93 Room Air 03/28/17 20:30 8.00 Intake and Output 03/28/17 03/28/17 03/29/17 Cumulative From/Thru 15:00 23:00 07:00 03/21/17 10:25 - 03/29/17 06:34 Intake Total 1150 ml 1600 ml 1257 ml 4007 ml Output Total 450 ml 850 ml 850 ml 2150 ml Balance 700 ml 750 ml 407 ml 1857 ml Intake Oral 625 ml 625 ml IV Total 1150 ml 1600 ml 632 ml 3382 ml Output Urine Total 400 ml 800 ml 850 ml 2050 ml Estimated Blood Loss 50 ml 50 ml 100 ml # Bowel Movements 0 0 Exam General: Age-appropriate, obese male in no acute distress. HEENT: Normocephalic, atraumatic. PERRLA, EOMI. Anicteric sclera. Mucous membranes moist/pink Neck: Neck supple with full range of motion. Lungs: Clear to auscultation bilaterally with no crackles, wheezes, or rhonchi. Cardiovascular: Regular rate/rhythm. No murmurs Abdomen: Soft, obese, nondistended, appropriately tender postop, incisions clean , dry and intact without erythema or purulence. Ostomy site appears healthy w/ small amt of bloody fluid in ostomy bag. Hypoactive bowel tones Extremities: No cyanosis or edema Neurological: AOx3, No focal neurologic deficit. Normal speech Lab and Diagnostics Labs Laboratory Tests Test 03/28/17 19:16 03/29/17 05:40 03/29/17 10:30 White Blood Count 16.5th/mm3 (3.8-10.1) 12.0th/mm3 (3.8-10.1) Red Blood Count 4.64mil/mm3 (4.40-5.80) 4.41mil/mm3 (4.40-5.80) Hemoglobin 11.0g/dL (13.8-17.2) 10.4g/dL (13.8-17.2) Hematocrit 35.5% (41.0-50.0) 33.7% (41.0-50.0) Mean Corpuscular Volume 76.5fL (81-100) 76.4fL (81-100) Mean Corpuscular Hemoglobin 23.7pg (27.0-35.0) 23.6pg (27.0-35.0) Mean Corpuscular Hemoglobin Concent 31.0% (32.0-37.0) 30.9% (32.0-37.0) Red Cell Distribution Width 17.0% (12.3-15.4) 17.3% (12.3-15.4) Platelet Count 463bil/L (150-400) 444bil/L (150-400) Neutrophils (%) (Auto) 85.9% (40-74) 78.4% (40-74) Lymphocytes (%) (Auto) 1.9% (14-46) 6.2% (14-46) Monocytes (%) (Auto) 11.8% (4-12) 15.1% (4-12) Eosinophils (%) (Auto) 0.1% (0-5) 0% (0-5) Basophils (%) (Auto) 0.1% (0-3) 0.2% (0-3) Sodium Level 138mEq/L (134-144) 143mEq/L (134-144) Potassium Level 3.8mEq/L (3.5-5.2) 3.6mEq/L (3.5-5.2) Chloride Level 99mEq/L (97-108) 101mEq/L (97-108) Carbon Dioxide Level 21mmol/L (18-29) 24mmol/L (18-29) Blood Urea Nitrogen 12mg/dL (6-20) 11mg/dL (6-20) Creatinine 0.84mg/dL (0.76-1.27) 0.87mg/dL (0.76-1.27) Estimat Glomerular Filtration Rate 114mL/min (>59) 110mL/min (>59) Glucose Level 162mg/dL (60-99) 141mg/dL (60-99) Calcium Level 8.4mg/dL (8.5-10.1) 8.5mg/dL (8.5-10.1) Total Bilirubin 0.3mg/dL (0.0-1.2) Aspartate Amino Transf (AST/SGOT) 29U/L (0-50) Alanine Aminotransferase (ALT/SGPT) 41U/L (0-44) Alkaline Phosphatase 63U/L (25-150) Total Protein 7.2g/dL (6.4-8.4) Albumin 3.9g/dL (3.4-5.0) Result Diagram: 03/29/17 0540 03/29/17 0540 X-Rays, CTs and MRIs 03/12/17 - CT ABDOMEN AND PELVIS WITH CONTRAST IMPRESSION: 1. Nonspecific colitis involving the distal left and proximal sigmoid colon. Likely diagnostic considerations include inflammatory bowel disease and infectious etiologies or less likely neoplastic process. 2. Colon is distended proximal to the distal left colon most compatible with partial colonic obstruction. 3. No free fluid or air. Approved by: oLu Galo MD, PhD on 03/12/2017 at 16:41 . Additional Diagnostics: DATE OF SURGERY: 03/28/2017 PREOPERATIVE DIAGNOSIS(ES): Crohn's disease of the sigmoid colon, rectum and perianal region. POSTOPERATIVE DIAGNOSIS(ES): Crohn's disease of the sigmoid colon, rectum and perianal region. PROCEDURE PERFORMED: 1. Laparoscopic resection of left colon and sigmoid colon with end left colostomy. 2. Flexible sigmoidoscopy. 3. Perianal exam under anesthesia and rectal exam under anesthesia with seton placement for [id number]. 4. Liposomal bupivacaine blocks of rectus sheath. SPECIMENS: Left colon and sigmoid colon, sent for final pathology. Negrita Rivas MD 03/28/17 1816 . Assessment & Plan 31-year-old gentleman with a history of hypertension, obstructive sleep apnea treated with CPAP, and Crohn's disease since the age of 11 complicated by perirectal abscesses and fistulas while on Remicade who presented to [facility] for bowel resection after outpatient evaluation revealed a sigmoid colon stricture 30cm from the anus. Now postop day 1 bowel resection with left colostomy. Pt is a great candidate for biologic and would prefer remicade than lei given better response to patient in past. pt responded to remicade but stopped due to physician in past wanted to give trial of humira for unknown reasons. Crohn's disease with subsequent stricture of sigmoid colon. Now s/p laprascopic resection of left colon and sigmoid colon with end left colostomy -Pt reportedly diagnosed at age 11 with developement of perirectal abscesses and fistulas required multiple incision and drainages, while on Remicade. Additionally he has tried 6-mercaptopurine and prednisone, Pentasa, Asacol, and Imuran without any relief. -CT abd on 03/12 showed nonspecific colitis involving the distal left and proximal sigmoid colon consistent w/IBD and partial colonic obstruction. -Colonoscopy on 03/15 significant for a stricture in the sigmoid colon 30cm from the anus. Friable mucosa was noted throughout the exam. Additionally a 2cm duodenal polyp was seen and biopsies significant for hyperplasia. -Due to inability to pass the scope past the stricture the patient was referred to General Surgery Plan: -If QuantiFERON gold negative for TB, start Remicade induction. Hypertension, chronic. -Continue home amlodipine MASON, chronic -Home CPAP mask . Pain Evaluation: Adequate Pain Control VTE Mechanical Devices: Intermittant Pneumatic CD Janice Barros DO Mar 29, 2017 08:29 Ulises Barclay MD Mar 29, 2017 13:52
[2017-03-29] MEDS: Polyethylene Glycol (PEG) 17 Gm Powder PO SCH (13:09)
--- NOTE | 2017-03-29 15:36 | NUR ---
Activity Pt up to the bedside to dangle feet. Pt stood and able to take four side steps. Tolerated activity okay. 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 Pt teaching on the importance of getting up and oob bed. Pt verbalized understanding, although needed lots of encouragement. Will encouraged pt to get oob to the chair next time. Call light within reach and care continues.
--- NOTE | 2017-03-29 15:46 | NUR ---
Inpatient Ostomy Nurse CWON RN spent time with patient reviewing need for colostomy and disease process. Patient's wafer edges were noted to be peeling with evidence of leaking at distal flange. Entire system was removed and beefy red stoma noted with appropriate protuberance and tension, centered os, covered in scattered pattern with stringy sanguinous jelly. Sutures intact. Pouch was 1/4 full of dark pink fluid. Peristomal skin warm and pink with dried blood under wafer. Peristomal skin was cleansed with water and dried well. A large, oval wafer was sized for stoma and a thin bead of stoma paste applied to rim. Pouch was attached prior to wafer application onto stoma. Patient was provided a warm blanket and instructed to apply pressure to improve adhesion. Patient was provided Jarrod booklet "Understanding Your Colostomy" and a template for cutting wafers. He stated that he has seen these items and feels that he will be able to maintain colostomy independently. Patient is open to further ostomy education on Saturday, stated that improved pain control and rest are priorities at this time. JUAN will work with patient again Saturday.
--- NOTE | 2017-03-29 17:03 | NUR ---
Assumed care of pt at this time. No current needs.
[2017-03-30] MEDS: HYDROmorphone PCA 0.2 mg/mL 30 mL Inj IV PRN ×2 (00:37→23:00)
[2017-03-30 00:40] VITALS: BP 128/80; PULSE 103; RESP 21; O2SAT 95
[2017-03-30] MEDS: Heparin 5,000 Unit/mL Inj SUBQ SCH ×3 (00:41→16:48)
--- NOTE | 2017-03-30 05:21 | NUR ---
NONPROFIT FINANCIAL CONTROLLER/Activity Patient is alert and oriented. Pain is managed with NONPROFIT FINANCIAL CONTROLLER pump. Patient voiding in urinal - Clear, talia urine. Patient able to stand and ambulate at bedside with walker for 10 minutes. Clear liquid diet - tolerating well. Bed down, rails up, call light in reach. Care continues.
[2017-03-30] MEDS: Acetaminophen IV 1,000 MG in IV Premix 1 EACH IV SCH ×2 (06:29→14:00)
--- NOTE | 2017-03-30 08:57 | PCM.PNSURG ---
Subjective Date of Service: Mar 30, 2017 Date of Service: Mar 30, 2017 Visit Information: Reason for Visit Sigmoid Colon Stricture Surgery/Surgery Date sigmoid colectomy/oscopy, ileostomy...03/28/17 Post-Op Day # 2 Date of Admission: Mar 28, 2017 at 19:58 Hospital Day # 2 Subjective: Emigdio reports pain is much better controlled on REFRIGERATOR ASSEMBLER and IV tylenol. Belching overnight. Feels very full after IMPACT, wants to know if he has to drink it. Had alot of oral intake yesterday 1432cc. No N/V but feels distended. Uncomfortable when trying to mobilizing, getting up to bathroom but did not walk in hallway or sit up in chair. Feels like he could have some abdominal support when up walking. No acute events overnight. Vital signs stable. No gas or stool in bag - still AROBF. Objective Intake and Output- Last 8 Hour 03/30/17 Cumulative From/Thru 07:00 03/21/17 10:25 - 03/30/17 05:47 Intake Total 1966 ml 6780 ml Output Total 2550 ml Balance 1966 ml 4230 ml Intake Oral 1432 ml IV Total 1966 ml 5348 ml Output Urine Total 2450 ml Estimated Blood Loss 100 ml # Bowel Movements 0 General: Alert, Oriented X3, Cooperative, No Acute Distress Lungs: Clear to Auscultation, Normal Air Movement Heart: Regular Rate/Rhythm, Normal S1, No Murmurs/Rubs/Gallops Abdomen: Appropriately tender, Distended, Ostomy pink & viable (no stool or gas in bag. serosanguinous fluid output.) Extremities: Warm Neuro: Grossly Neurologically Intact Catheters: None Result Diagram: 03/29/17 0540 03/29/17 0540 Assessment & Plan Impression 31 yo M with Crohn's disease and distal sigmoid stricture s/p EUA, perianal fistula seton placement, flexible sigmoidoscopy and laparoscopic hand assisted sigmoid and left colectomy with Anamika's procedure. Problems: Plan NEURO: Continue hydromorphone REFRIGERATOR ASSEMBLER and IV tylenol. FEN/GI: Continue D5LR at 80cc/hr. Anti emetics prn. Full liquid diet, Impact daily. Miralax daily. If N/V - slow down on intake. RENAL: Adequate UOP. Voiding without retention. Urine still a little dark s/p stent removal. HEME/ID: Afebrile, vital signs stable. Will continue to observe. No additional labs.Hct stable, minimal intraoperative blood loss. CV: Home amlodipine 10mg daily. PULM: Home CPAP at night. Incentive spirometry 10x/hr. MSK: Ambulate TID. Not mobilizing well - ordered Physical Therapy today to encourage walking at least three times daily. May use abdominal binder only when walking - MUST be off when in bed, just for support during mobilization. WOUND: Ostomy care and teaching. Wound care initiated ostomy teaching yesterday. Encourage patient to engage in ostomy care and bag changes to ensure comfort at discharge. DISPO: Awaiting return of bowel function. Likely discharge early next week if progressing well. VTE Prophylaxis: Sub-Q Heparin (Unfractionated) Resuscitation Status: CPR: Attempt Resuscitation Neema Golden MD Mar 30, 2017 08:57
--- NOTE | 2017-03-30 10:56 | PCM.PNSURG ---
Subjective Date of Service: Mar 30, 2017 Date of Service: Mar 30, 2017 Visit Information: Subjective: no acute events overnight. pt reports abdominal pain 01/28. tb quantiferon test pending Postop General: No Complaints Objective Intake and Output- Last 8 Hour 03/30/17 Cumulative From/Thru 07:00 03/21/17 10:25 - 03/30/17 05:47 Intake Total 1966 ml 6780 ml Output Total 2550 ml Balance 1966 ml 4230 ml Intake Oral 1432 ml IV Total 1966 ml 5348 ml Output Urine Total 2450 ml Estimated Blood Loss 100 ml # Bowel Movements 0 General: Oriented X3 Neck: Supple Lungs: Clear to Auscultation Heart: Exam Unremarkable Abdomen: Benign, Soft, Appropriately tender, Non-distended, Normoactive bowel tones, Other (colostomy bag) Extremities: Distal Pulses Palpable Result Diagram: 03/29/17 0540 03/29/17 0540 Assessment & Plan Impression Stanley Palmer is a 31-year-old gentleman with a history of hypertension, obstructive sleep apnea treated with CPAP, and Crohn's disease since the age of 11 complicated by perirectal abscesses and fistulas while on Remicade who presented to [facility] for bowel resection after outpatient evaluation revealed a sigmoid colon stricture at 30cm from the anus. In the past, the patient has tried 6-mercaptopurine and prednisone, Pentasa, Asacol, and Imuran without any relief. He was reportedly placed on Remicade at age 20 which was stopped for six months and he was placed on Humira instead but he is unsure why. Then in 2014 he was started back on Remicade and had been receiving this every 8 weeks prior to admission. Patient reports 6-8 bowel movements per day at baseline that are typically loose and non-bloody. He has a history of perirectal abscesses and fistulas that have required multiple incision and drainages. Most recently he was seen at [facility] and underwent incision and drainage of perirectal abscess on 01/21. At that time a CT scan showed thickening of the terminal ileum and inflammatory changes from the transverse colon to the proximal sigmoid colon. He states that he continued to have symptoms and on a colonoscopy showed a stricture in the sigmoid colon 30cm from the anus. 03/28/2017- s/p Laparoscopic resection of left colon and sigmoid colon with end left colostomy with Anamika's procedure, Flexible sigmoidoscopy, Perianal exam under anesthesia and rectal exam under anesthesia with seton placement for [id number], Liposomal bupivacaine blocks of rectus sheath. Pt is a great candidate for biologic and would prefer remicade than lei given better response to patient in past. pt responded to remicade but stopped due to physician in past wanted to give trial of humira for unknown reasons. Recs: -If QuantiFERON gold negative for TB, start Remicade 5 mg/kg at 0, 2, and 6 weeks induction phase, followed by 5 mg/kg every 8 weeks will cont to follow Problems: VTE Prophylaxis: Sub-Q Heparin (Unfractionated) Resuscitation Status: CPR: Attempt Resuscitation Ulises Barclay MD Mar 30, 2017 10:55
--- NOTE | 2017-03-30 11:29 | NUR ---
Evaluation completed. Please go to "Notes" then click on "Assessments and Notes" (bottom left corner of screen). Then select appropriate discipline tab on top of screen.
[2017-03-30] MEDS: Polyethylene Glycol (PEG) 17 Gm Powder PO SCH (12:08)
[2017-03-30] MEDS: Dextrose 5% Lactated Ringer's 1,000 ML IV SCH ×2 (12:08→20:06)
[2017-03-30 12:46] VITALS: BP 127/82; PULSE 96; RESP 16; O2SAT 96
[2017-03-30] MEDS ORDERED: 0.9% Sodium Chloride 250 ML ONE (14:02)
--- NOTE | 2017-03-30 14:19 | NUR ---
Social Work-initial assessment: Data:See initial assessment. Pt is a 31 y/o male who was admitted on 03/28/17 for sigmoid colon stricture per H&P. Pt's insurance is [employer] and [employer] and PCP is Maria Eugenia Melgar MD. EMR reviewed. Pt's readmission score is 2. SW met with pt at bedside, SW role explained. Pt is alert and oriented x3. Pt resides at home with mom and niece in a ground floor apartment in [place] where he remains independent with ADLS. Pt does not drive and only has a CPAP for home DME. Pt has no HH or SNF history. Pt has no smoking pipe liner care insurance or VA benefits. SW discussed DPOA/ advanced directive, pt confirms this has been completed, SW encouraged a copy to be brought in. PT has seen pt and cleared pt for home with HH services. Wound care involved with pt's new colostomy, will follow up on Saturday. Pt to likely benefit from HH services, no MD orders at this time. SW provided pt with discharge planning checklist and encouraged pt to call with any questions, phone number provided on white board in room. Pt states his mother will provide transport home. SW will continue to follow. Assessment:Pt who is independent at baseline. plan:Pt to likely discharge home when medically stable. Pt has new ostomy and PT recommending HH. No MD orders have been obtained. JANINA will continue to follow. KIP Burleson Addendum: 03/30/17 at 1424 by DENEEN CORLEY SS Amended: Links added.
--- NOTE | 2017-03-30 14:33 | NUR ---
NUTRITION ASSESSMENT: ASSESS: 31 YO male presented to [facility] for bowel resection after outpatient evaluation revealed a sigmoid colon stricture at 30 cm from the anus, per SCOAP protocol. POD #2 following laparoscopic resection of left colon and sigmoid colon with end left colostomy with Anamika's procedure, flexible sigmoidoscopy, perianal exam under anesthesia and rectal exam under anesthesia with seton placement for [id number]. Diet advanced to full liquids yesterday, with Impact Advanced Recovery added to all trays. PO intake sips - 25% trays. Pt. reports feeling full and asking if he is required to take the Impact. He has no nausea or vomiting but says he feels distended. Awaiting return of bowel function. PMHx: Crohn's disease since age 11 complicated by perirectal abscesses and fistulas, HTN, MASON utilizing CPAP, anemia, heart murmur. DIET: Full liquids, to include Impact Advanced Recovery all trays. PO intake sips - 25% trays. LABS: Reviewed. Glu 141. MEDICATIONS: Reviewed. NUTRITION FOCUSED PHYSICAL ASSESSMENT: GI symptoms / stool: No stool Liu: 17. Skin Integrity: Psychiatric Mental Health Nurse involved for colostomy training. ANTHROPOMETRICS: Current Wt: 113.0 kg BMI: 40.0 kg/m2. Admit weight: 108.86 kg IBW: 63.8 kg (171% IBW) ESTIMATED NEEDS (CLASS II OBESITY, SCOAP SURGERY): Calories: 1914 - 2233 kcal (30 - 35 kcal / kg IBW) Protein 115 - 128 g protein (1.8 - 2.0 g / kg IBW) NUTRITION DIAGNOSIS: 1)Increased nutrient needs related to complex GI surgery, as evidenced by SCOAP protocol in place. INTERVENTION: 1) Continue Impact Advanced Recovery all trays. MONITOR/EVALUATE: Diet advance / tolerance, PO intake, labs, weight, nutritional status. Follow up per high nutrition risk guidelines.
[2017-03-30 16:52] VITALS: RESP 20; O2SAT 93
[2017-03-30 16:57] VITALS: RESP 18
[2017-03-30] MEDS: Ondansetron 2 mg/mL 2 mL Inj IVPUSH PRN ×2 (18:49→19:30)
[2017-03-30 20:00] VITALS: RESP 18; O2SAT 93
[2017-03-30 20:19] VITALS: BP 141/85; PULSE 92; RESP 18; O2SAT 95
[2017-03-31] VITALS (7 sets, daily range): BP systolic 112–127; BP diastolic 71–76; PULSE 93–97; RESP 16–18; O2SAT 92–96
[2017-03-31] MEDS: Heparin 5,000 Unit/mL Inj SUBQ SCH ×3 (00:38→15:56)
[2017-03-31] MEDS: Dextrose 5% Lactated Ringer's 1,000 ML IV SCH (00:38)
--- NOTE | 2017-03-31 01:37 | NUR ---
PAIN/GI; pt c/o nausea at beginning of shift, zofran given x2 with relief. No c/o pain. Using cpap.
--- NOTE | 2017-03-31 11:26 | PCM.PNSURG ---
Subjective Date of Service: Mar 31, 2017 Date of Service: Mar 31, 2017 Visit Information: Reason for Visit Sigmoid Colon Stricture Surgery/Surgery Date sigmoid colectomy/oscopy, ileostomy...03/28/17 Date of Admission: Mar 28, 2017 at 19:58 Subjective: No acute events overnight. Mobilized with PT. Tolerating full liquid diet without nausea or emesis. Colostomy output increased and liquid brown output was 250cc overnight. Starting to open up, feels less distended and abdominal pain significantly improved. Barely using dilaudid CONSULTING PRACTICE MANAGER. Objective Vital Sign- Last 8 Hours Date Time Temp Pulse Resp B/P Pulse Ox O2 Delivery O2 Flow Rate FiO2 03/31/17 08:16 Supplement Oxygen 03/31/17 08:15 16 92 03/31/17 06:15 18 92 03/31/17 03:38 38.2 97 18 124/71 92 Nasal Cannula 2.00 Intake and Output- Last 8 Hour 03/31/17 Cumulative From/Thru 07:00 03/21/17 10:25 - 03/31/17 05:20 Intake Total 1226 ml 74041 ml Output Total 1250 ml 4425 ml Balance -24 ml 5884 ml Intake Oral 300 ml 2952 ml IV Total 926 ml 7357 ml Output Urine Total 1000 ml 4075 ml Stool Total 250 ml 250 ml Estimated Blood Loss 100 ml # Voids 2 # Bowel Movements 0 General: Alert, Oriented X3, Cooperative, No Acute Distress Lungs: Clear to Auscultation Heart: Regular Rate/Rhythm Abdomen: Soft, Appropriately tender, Distended, Ostomy pink & viable, Other ( Brown liquid in ostomy bag. Incisions c/d/i.) Extremities: Warm Result Diagram: 03/29/17 0540 03/29/17 0540 Assessment & Plan Impression 31 yo M with Crohn's disease and distal sigmoid stricture s/p EUA, perianal fistula seton placement, flexible sigmoidoscopy and laparoscopic hand assisted sigmoid and left colectomy with Anamika's procedure. Problems: Plan NEURO: Oral tylenol and oxycodone prn. FEN/GI: Anti emetics prn. Full liquid diet, Impact daily - Regular diet tomorrow. Miralax daily. If N/V - slow down on intake. RENAL: Adequate UOP. Voiding without retention. HEME/ID: Afebrile, vital signs stable. Will continue to observe. No additional labs.Hct stable, minimal intraoperative blood loss. CV: Home amlodipine 10mg daily. PULM: Home CPAP at night. Incentive spirometry 10x/hr. MSK: Ambulate TID. Continue Physical Therapy. Encourage walking at least three times daily. May use abdominal binder only when walking - MUST be off when in bed, just for support during mobilization. WOUND: Ostomy care and teaching. Encourage patient to engage in ostomy care and bag changes to ensure comfort at discharge. DISPO: Likely discharge early next week if progressing well. VTE Prophylaxis: Sub-Q Heparin (Unfractionated) Resuscitation Status: CPR: Attempt Resuscitation Neema Golden MD Mar 31, 2017 11:26
[2017-03-31] MEDS: Polyethylene Glycol (PEG) 17 Gm Powder PO SCH (12:22)
--- NOTE | 2017-03-31 14:06 | PCM.PNSURG ---
Subjective Date of Service: Mar 31, 2017 Date of Service: Mar 31, 2017 Visit Information: Subjective: abdominal pain 08/31 today. await tb QuantiFERON test Postop General: No Complaints Objective Vital Sign- Last 8 Hours Date Time Temp Pulse Resp B/P Pulse Ox O2 Delivery O2 Flow Rate FiO2 03/31/17 12:27 16 92 03/31/17 12:15 38.6 97 18 112/71 95 CPAP 03/31/17 08:16 Supplement Oxygen 03/31/17 08:15 16 92 03/31/17 06:15 18 92 Intake and Output- Last 8 Hour 03/31/17 Cumulative From/Thru 07:00 03/21/17 10:25 - 03/31/17 05:20 Intake Total 1226 ml 37629 ml Output Total 1250 ml 4425 ml Balance -24 ml 5884 ml Intake Oral 300 ml 2952 ml IV Total 926 ml 7357 ml Output Urine Total 1000 ml 4075 ml Stool Total 250 ml 250 ml Estimated Blood Loss 100 ml # Voids 2 # Bowel Movements 0 General: Oriented X3 Neck: Supple Lungs: Clear to Auscultation Heart: Exam Unremarkable Abdomen: Benign, Soft, Appropriately tender, Non-distended, Normoactive bowel tones Extremities: Distal Pulses Palpable Result Diagram: 03/29/17 0540 03/29/17 0540 Assessment & Plan Impression Stanley Palmer is a 31-year-old gentleman with a history of hypertension, obstructive sleep apnea treated with CPAP, and Crohn's disease since the age of 11 complicated by perirectal abscesses and fistulas while on Remicade who presented to [facility] for bowel resection after outpatient evaluation revealed a sigmoid colon stricture at 30cm from the anus. In the past, the patient has tried 6-mercaptopurine and prednisone, Pentasa, Asacol, and Imuran without any relief. He was reportedly placed on Remicade at age 20 which was stopped for six months and he was placed on Humira instead but he is unsure why. Then in 2014 he was started back on Remicade and had been receiving this every 8 weeks prior to admission. Patient reports 6-8 bowel movements per day at baseline that are typically loose and non-bloody. He has a history of perirectal abscesses and fistulas that have required multiple incision and drainages. Most recently he was seen at [facility] and underwent incision and drainage of perirectal abscess on 01/21. At that time a CT scan showed thickening of the terminal ileum and inflammatory changes from the transverse colon to the proximal sigmoid colon. He states that he continued to have symptoms and on a colonoscopy showed a stricture in the sigmoid colon 30cm from the anus. 03/28/2017- s/p Laparoscopic resection of left colon and sigmoid colon with end left colostomy with Anamika's procedure, Flexible sigmoidoscopy, Perianal exam under anesthesia and rectal exam under anesthesia with seton placement for [id number], Liposomal bupivacaine blocks of rectus sheath. Pt is a great candidate for biologic and would prefer remicade than lei given better response to patient in past. pt responded to remicade but stopped due to physician in past wanted to give trial of humira for unknown reasons. Recs: -If QuantiFERON gold negative for TB, start Remicade 5 mg/kg at 0, 2, and 6 weeks induction phase, followed by 5 mg/kg every 8 weeks will cont to follow Problems: VTE Prophylaxis: Sub-Q Heparin (Unfractionated) Resuscitation Status: CPR: Attempt Resuscitation Ulises Barclay MD Mar 31, 2017 14:06
--- NOTE | 2017-03-31 15:50 | NUR ---
Pain/Activity TILE AND MARBLE INSTALLER Dilaudid was d/c'd and pain has been controlled with PRN PO pain medication. Pt rates pain at 3/10. Pt up and oob for lunch, and walked apx 30ft. Will continue to encourage pt to get oob for meals. Care continues.
--- NOTE | 2017-03-31 23:26 | NUR ---
ACTIVITY/PAIN/GI; up in hallway with mother at 7pmish. Abd binder on. Pain rx effective for incisional pain. Colostomy draining brown liquid stool.
[2017-04-01] MEDS: Heparin 5,000 Unit/mL Inj SUBQ SCH ×4 (00:58→23:38)
--- NOTE | 2017-04-01 05:26 | NUR ---
ACTIVITY; stated is done sleeping. Assisted up to chair at bedside at this time. Pain rx given with relief.
[2017-04-01 07:24] VITALS: BP 122/76; PULSE 94; RESP 20; O2SAT 94
--- NOTE | 2017-04-01 07:51 | PCM.PNSURG ---
Subjective Date of Service: Apr 01, 2017 Date of Service: Apr 01, 2017 Visit Information: Reason for Visit Sigmoid Colon Stricture Surgery/Surgery Date sigmoid colectomy/oscopy, ileostomy...03/28/17 Date of Admission: Mar 28, 2017 at 19:58 Subjective: Mr. Palmer states that he is doing well today with good control of his pain with PO pain medications. He notes some increased pain with ambulation but states that he has been able to ambulate the halls with his walker without too much difficulty. Patient had good oral intake yesterday while on a liquid diet, he feels comfortable advancing his diet to a full diet today. Denies any nausea or vomiting. Patient has been receiving oxygen via nasal canula on and off throughout the day with continued use of his cpap overnight. He denies any shortness or breath today. Patient notes good ostomy output with no other concerns today. Postop General: No Shortness of Breath Gastrointestinal: Good Appetite, Tolerating Oral Feedings, No N/V Pain Management: PO, Good Pain Control Postop Activity: Ambulates with Assist Device, Ambulating in [place] Objective Vital Sign- Last 8 Hours Date Time Temp Pulse Resp B/P Pulse Ox O2 Delivery O2 Flow Rate FiO2 04/01/17 07:24 37.1 94 20 122/76 94 CPAP 2.00 Intake and Output- Last 8 Hour 04/01/17 Cumulative From/Thru 07:00 03/21/17 10:25 - 03/31/17 21:30 Intake Total 53914 ml Output Total 6450 ml Balance 5135 ml Intake Oral 4228 ml IV Total 7357 ml Output Urine Total 4950 ml Stool Total 1400 ml Estimated Blood Loss 100 ml # Voids 2 # Bowel Movements 0 General: Alert, Oriented X3, Cooperative, No Acute Distress Neck: Supple Lungs: Clear to Auscultation, Normal Air Movement Heart: Regular Rate/Rhythm, No Murmurs/Rubs/Gallops Abdomen: Soft, Protuberant, Ostomy pink & viable, Other (dark brown liquid stool, incisions are clean, dry and intact ) Extremities: Warm Result Diagram: 03/29/17 0540 03/29/17 0540 Assessment & Plan Impression 31 YOM with hx of Crohn's disease and distal sigmoid stricture s/p perianal fistula seton placement, sigmoid and left colectomy with Anamika's procedure. Problems: Plan Good pain control with PO medications: Tylenol and Oxycodone PRN. Advance to full regular diet today. Discussed importance of slowly advancing diet and decreasing intake if continued nausea and vomiting. Continue anti- emetics PRN. Continue CPAP at night for MASON. Discontinue supplemental oxygen use if maintaining sats. Placed incentive spirometer at bedside and instructed patient on appropriate use. Encouraged IS 10x/hour. Continue to ambulate TID and physical therapy consultation. Encouraged patient to participate in ostomy care and bag changes today to ensure comfort at discharge. Disposition: Consider discharge tomorrow if patient is successfully able to tolerate advanced diet. VTE Prophylaxis: Sub-Q Heparin (Unfractionated) Resuscitation Status: CPR: Attempt Resuscitation Judith Dawson DO Apr 01, 2017 07:51
[2017-04-01] MEDS: Polyethylene Glycol (PEG) 17 Gm Powder PO SCH (12:17)
[2017-04-01 12:29] VITALS: BP 122/77; PULSE 94; RESP 20; O2SAT 92
--- NOTE | 2017-04-01 12:39 | PCM.PNSURG ---
Subjective Date of Service: Apr 01, 2017 Date of Service: Apr 01, 2017 Visit Information: Subjective: pt sitting up on chair this am. pt states tolerated PO diet. Postop General: No Complaints Objective Vital Sign- Last 8 Hours Date Time Temp Pulse Resp B/P Pulse Ox O2 Delivery O2 Flow Rate FiO2 04/01/17 12:29 37.9 94 20 122/77 92 Nasal Cannula 3.00 04/01/17 09:10 Supplement Oxygen 04/01/17 07:24 37.1 94 20 122/76 94 CPAP 2.00 Intake and Output- Last 8 Hour 04/01/17 Cumulative From/Thru 07:00 03/21/17 10:25 - 03/31/17 21:30 Intake Total 81996 ml Output Total 6450 ml Balance 5135 ml Intake Oral 4228 ml IV Total 7357 ml Output Urine Total 4950 ml Stool Total 1400 ml Estimated Blood Loss 100 ml # Voids 2 # Bowel Movements 0 General: Oriented X3 Neck: Supple Lungs: Clear to Auscultation Heart: Exam Unremarkable Abdomen: Benign, Soft, Appropriately tender, Non-distended, Normoactive bowel tones, Other (colostomy bag) Extremities: Distal Pulses Palpable Result Diagram: 03/29/17 0540 03/29/17 0540 Assessment & Plan Impression Stanley Palmer is a 31-year-old gentleman with a history of hypertension, obstructive sleep apnea treated with CPAP, and Crohn's disease since the age of 11 complicated by perirectal abscesses and fistulas while on Remicade who presented to [facility] for bowel resection after outpatient evaluation revealed a sigmoid colon stricture at 30cm from the anus. In the past, the patient has tried 6-mercaptopurine and prednisone, Pentasa, Asacol, and Imuran without any relief. He was reportedly placed on Remicade at age 20 which was stopped for six months and he was placed on Humira instead but he is unsure why. Then in 2014 he was started back on Remicade and had been receiving this every 8 weeks prior to admission. Patient reports 6-8 bowel movements per day at baseline that are typically loose and non-bloody. He has a history of perirectal abscesses and fistulas that have required multiple incision and drainages. Most recently he was seen at [facility] and underwent incision and drainage of perirectal abscess on 01/21. At that time a CT scan showed thickening of the terminal ileum and inflammatory changes from the transverse colon to the proximal sigmoid colon. He states that he continued to have symptoms and on a colonoscopy showed a stricture in the sigmoid colon 30cm from the anus. 03/28/2017- s/p Laparoscopic resection of left colon and sigmoid colon with end left colostomy with Anamika's procedure, Flexible sigmoidoscopy, Perianal exam under anesthesia and rectal exam under anesthesia with seton placement for [id number], Liposomal bupivacaine blocks of rectus sheath. Pt is a great candidate for biologic and would prefer remicade than lei given better response to patient in past. pt responded to remicade but stopped due to physician in past wanted to give trial of humira for unknown reasons. Recs: -If QuantiFERON gold negative for TB, start Remicade 5 mg/kg at 0, 2, and 6 weeks induction phase, followed by 5 mg/kg every 8 weeks will cont to follow Problems: VTE Prophylaxis: Sub-Q Heparin (Unfractionated) Resuscitation Status: CPR: Attempt Resuscitation Ulises Barclay MD Apr 01, 2017 12:39
--- NOTE | 2017-04-01 16:18 | NUR ---
Inpatient Ostomy Nurse JUAN met with patient for ostomy education. Patient declined watching Coloplast DVD, said that he would watch it at home on [employer] system. Patient stated that he has had no leaks and is comfortable in [employer] system. He understands that colostomy is lifelong and no revision is expected. Steps of emptying ostomy pouch were reviewed, with patient providing barriers about why he will not be able to do this independently, such as toilet placement and body shape. He was encouraged to try to do this before discharge, when his primary RN is in his room to empty pouch, he should ask to ambulate to toilet and either sit with legs apart and empty into toilet (the usual method) or internal affairs investigator front of toilet and empty. Coloplast system was introduced as a possible option for patient post discharge, as it requires no clicking pouch and distal closure may be easier to operate. Patient was agreeable to Coloplast trial tomorrow. JUAN will meet with patient for system change tomorrow, offer two differing systems and encourage patient to be able to empty pouch and burp pouch prior to discharge.
--- NOTE | 2017-04-01 16:41 | NUR ---
Social Work-Readiness for Discharge Data: EMR reviewed. Pt is on day 4 of hospitalization for sigmoid colon stricture per H&P. Pt discussed in multidisciplinary rounds, pt is not medically ready for discharge. Pt continues with training towards independence with his colostomy. PT has cleared pt for home, recommending walker for use at discharge. Pt has been more ambulatory around the unit, pt will likely not require HH services at d/c. SW met with pt at bedside to discuss discharge plan. Pt is alert and oriented x3. Discussed walker recommendation. Pt is hopeful that he won't need a walker at discharge. Discussed options including Loaner DME, insurance, and private pay. Pt provided with loaner DME list at bedside. Pt confirms that he will inform his mother of this information. Pt is agreeable, oriented pt to phone number on whiteboard. Pt declined any additional needs, SW will continue to follow. Assessment: Pt who is independent at baseline. Plan: Pt is hopeful he will not need a walker at discharge but plans on getting a loaner walker if he needs it. Pt continues to work with Quality Rep towards independence with ostomy. Pt will require follow up with Wound Care appointment. Pt to likely discharge home when medically stable. SW will continue to follow. Tammy Castro MSW
--- NOTE | 2017-04-01 17:13 | PCM.DISURG ---
Surgical Discharge Instruction Date of Service Apr 01, 2017 Dates of Hospitalization Date of Hospital Admission Mar 28, 2017 at 19:58 Providers Admitting Physician: Negrita Rivas MD Primary Care Physician: Maria Eugenia Melgar Attending Physician: Negrita Rivas MD Discharge Diagnosis Discharge Diagnosis Crohn's disease with sigmoid stricture and perianal fistula Post Operative diagnosis Crohn's disease with sigmoid stricture and perianal fistula Diet Discharge Diet: Other (Avoid raw fruits and vegetables for 2 weeks.) Activity Discharge Activity-General: Be up and about, Balance rest and activity, No lifting >15 pounds for 2 weeks, No driving while taking narcotic Dressing and Incisional Care Dressing Care: Keep dressing clean, dry & intact, Allow Steri Stripes to fall off Hygiene: May shower, DO NOT soak incision under water, NO bathtub, hot tub or whirlpool Follow Up Plan Follow-up Provider (F9): Negrita Rivas MD Follow-up appointment: Weeks (2-3) Neema Golden MD Apr 01, 2017 17:13
[2017-04-01] MEDS ORDERED: POLY17PO6 PO (17:17)
[2017-04-01] MEDS ORDERED: OXYC-530 PO (17:17)
[2017-04-01 20:25] VITALS: BP 124/75; PULSE 96; RESP 20; O2SAT 96
--- NOTE | 2017-04-02 06:14 | NUR ---
Activity/pain Pt c/o severe abdominal pain and is burping. Got up and ambulated halls x3 and pain was relieved. Advised Pt he has gas and movement is best. Colostomy with minimal flatus, good output of liquid brown stool. Pt up in bedside chair and rates pain 2-3/10. Call light in reach, care continues
[2017-04-02 06:43] VITALS: BP 118/76; PULSE 97; RESP 20; O2SAT 96
--- NOTE | 2017-04-02 07:42 | PCM.PNSURG ---
Subjective Date of Service: Apr 02, 2017 Date of Service: Apr 02, 2017 Visit Information: Reason for Visit Sigmoid Colon Stricture Surgery/Surgery Date sigmoid colectomy/oscopy, ileostomy...03/28/17 Date of Admission: Mar 28, 2017 at 19:58 Subjective: Mr. Palemr states that his pain was well controlled on oral pain meds until last night when he had some worsening lower abdominal pain and bloating. Patient states that his pain significantly decreased after taking a few laps around the department with some residual pain that is 2/10 in severity. He reports good PO intake with a full diet. Patient denies any nausea or vomiting. He has had good colostomy output. Patient has continued to be on 2L supplemental oxygen on nasal canula due to desaturations throughout the day with activity. He has continued to use his incentive spirometer throughout the day. Patient has continued to ambulate around the department with use of his walker. He received ostomy education yesterday and was advised to try and empty his ostomy bag by himself today. Postop General: No Shortness of Breath Gastrointestinal: Good Appetite, Tolerating Oral Feedings, No N/V, Passing Flatus Pain Management: PO Postop Activity: Ambulates with Assist Device Objective Vital Sign- Last 8 Hours Date Time Temp Pulse Resp B/P Pulse Ox O2 Delivery O2 Flow Rate FiO2 04/02/17 06:43 36.9 97 20 118/76 96 Nasal Cannula 3.00 Intake and Output- Last 8 Hour 04/02/17 Cumulative From/Thru 07:00 03/21/17 10:25 - 04/02/17 06:43 Intake Total 1200 ml 45344 ml Output Total 250 ml 8370 ml Balance 950 ml 6870 ml Intake Oral 1200 ml 7883 ml IV Total 7357 ml Output Urine Total 5600 ml Stool Total 250 ml 2670 ml Estimated Blood Loss 100 ml # Voids 3 7 # Bowel Movements 0 General: Alert, Oriented X3, Cooperative, No Acute Distress Neck: Supple Lungs: Clear to Auscultation, Normal Air Movement Heart: Regular Rate/Rhythm, Normal S1, Normal S2, No Murmurs/Rubs/Gallops Abdomen: Soft, Non-tender, Protuberant, Normoactive bowel tones, Other ( incisions clean, dry and intact, ostomy bag with brown, liquid stool ) Extremities: Warm Result Diagram: 03/29/17 0540 03/29/17 0540 Assessment & Plan Impression 31 YOM with hx of Crohn's disease and distal sigmoid stricture s/p perianal fistula seton placement, sigmoid and left colectomy with Anamika's procedure. Problems: Plan Good pain control with PO medications: Tylenol and Oxycodone PRN. Tolerating full diet with good PO intake. Discussed importance of slowly advancing diet and decreasing intake if continued nausea and vomiting. Continue CPAP at night for MASON. Discontinue supplemental oxygen use if maintaining sats >90%. Wean oxygen use down to 0.5L if sats drop below 90%. Advised continued use of incentive spirometer. Encouraged patient to participate in ostomy care and bag changes today to ensure comfort at discharge. Continue to ambulate TID. Disposition: Discharge likely later today, currently pending due to weaning from supplemental oxygen use. Placed on 0.5L on examination this morning. Will continue to monitor and reassess. VTE Prophylaxis: Sub-Q Heparin (Unfractionated) Resuscitation Status: CPR: Attempt Resuscitation Attending Statement: I examined this patient and agree with the plan above. MD Eunice Peterson Asra DO Apr 02, 2017 07:39 Negrita Rivas MD Apr 03, 2017 07:42
[2017-04-02] MEDS: Heparin 5,000 Unit/mL Inj SUBQ SCH (08:06)
--- NOTE | 2017-04-02 09:41 | PCM.PNMED ---
Subjective Date of Service Apr 02, 2017 Subjective GASTROENTEROLOGY PROGRESS NOTE: Attending Physician: Ulises Barclay MD Resident Physician: Janice Barros DO No acute events overnight. Due to a drop in O2 sats this morning, patient placed on 3L of oxygen. This was titrated down as tolerated and he is currently on room air and maintaining O2 sats in high 90s. Patient reports increased abdominal pain this morning and attributes the increased oxygen need to pain. Pain is well controlled now and he states that he is tolerating his diet. Colostomy with liquid brown stool. Exam Vital Signs Vital Sign - Last Date Time Temp Pulse Resp B/P Pulse Ox O2 Delivery O2 Flow Rate FiO2 04/02/17 06:43 36.9 97 20 118/76 96 Nasal Cannula 3.00 Intake and Output 04/01/17 04/01/17 04/02/17 Cumulative From/Thru 15:00 23:00 07:00 03/21/17 10:25 - 04/02/17 06:43 Intake Total 737 ml 1718 ml 1200 ml 66693 ml Output Total 1100 ml 570 ml 250 ml 8370 ml Balance -363 ml 1148 ml 950 ml 6870 ml Intake Oral 737 ml 1718 ml 1200 ml 7883 ml IV Total 7357 ml Output Urine Total 650 ml 5600 ml Stool Total 450 ml 570 ml 250 ml 2670 ml Estimated Blood Loss 100 ml # Voids 2 3 7 # Bowel Movements 0 Exam General: Age-appropriate, obese male in no acute distress. HEENT: Atraumatic. Anicteric sclera. Mucous membranes moist/pink Lungs: Clear to auscultation bilaterally with no crackles, wheezes, or rhonchi. Cardiovascular: Regular rate/rhythm. No murmurs Abdomen: Soft, obese, nondistended, appropriately tender postop, abdominal binder in place, no erythema or drainage from incision sites. Ostomy site appears healthy w/liquid brown stool. Normoactive bowel tones Extremities: No cyanosis or edema Neurological: AOx3, No focal neurologic deficit. Normal IVs and Medications Medications Reviewed: Medications were reviewed in detail Lab and Diagnostics Result Diagram: 03/29/1753903/29/1740 X-Rays, CTs and MRIs 03/12/17 - CT ABDOMEN AND PELVIS WITH CONTRAST IMPRESSION: 1. Nonspecific colitis involving the distal left and proximal sigmoid colon. Likely diagnostic considerations include inflammatory bowel disease and infectious etiologies or less likely neoplastic process. 2. Colon is distended proximal to the distal left colon most compatible with partial colonic obstruction. 3. No free fluid or air. Approved by: Lou Galo MD, PhD on 03/12/2017 at 16:41 . Additional Diagnostics DATE OF SURGERY: 03/28/2017 PREOPERATIVE DIAGNOSIS(ES): Crohn's disease of the sigmoid colon, rectum and perianal region. POSTOPERATIVE DIAGNOSIS(ES): Crohn's disease of the sigmoid colon, rectum and perianal region. PROCEDURE PERFORMED: 1. Laparoscopic resection of left colon and sigmoid colon with end left colostomy. 2. Flexible sigmoidoscopy. 3. Perianal exam under anesthesia and rectal exam under anesthesia with seton placement for [id number]. 4. Liposomal bupivacaine blocks of rectus sheath. SPECIMENS: Left colon and sigmoid colon, sent for final pathology. Negrita Rivas MD 03/28/17 8146 . Assessment & Plan Stanley Palmer is a 31-year-old gentleman with a history of hypertension, obstructive sleep apnea treated with CPAP, and Crohn's disease since the age of 11 complicated by perirectal abscesses and fistulas while on Remicade who presented to [facility] for bowel resection after outpatient evaluation revealed a sigmoid colon stricture at 30cm from the anus. In the past, the patient has tried 6-mercaptopurine and prednisone, Pentasa, Asacol, and Imuran without any relief. He was reportedly placed on Remicade at age 20 which was stopped for six months and he was placed on Humira instead but he is unsure why. Then in 2014 he was started back on Remicade and had been receiving this every 8 weeks prior to admission. Patient reports 6-8 bowel movements per day at baseline that are typically loose and non-bloody. He has a history of perirectal abscesses and fistulas that have required multiple incision and drainages. Most recently he was seen at [facility] and underwent incision and drainage of perirectal abscess on 01/21. At that time a CT scan showed thickening of the terminal ileum and inflammatory changes from the transverse colon to the proximal sigmoid colon. He states that he continued to have symptoms and on a colonoscopy showed a stricture in the sigmoid colon 30cm from the anus. 03/28/2017- s/p Laparoscopic resection of left colon and sigmoid colon with end left colostomy with Anamika's procedure, Flexible sigmoidoscopy, Perianal exam under anesthesia and rectal exam under anesthesia with seton placement for [id number], Liposomal bupivacaine blocks of rectus sheath. Patient is a great candidate for biologic and prefer Remicade rather than Nadia given better response in past. Patient responded to Remicade but stopped due to physician in past wanted to give trial of humira for unknown reasons. RECOMMENDATIONS: -From GI standpoint, stable for discharge. -Outpatient followup with GI in 2-4weeks. If QuantiFERON gold negative for TB, start Remicade 5 mg/kg at 0, 2, and 6 weeks induction phase, followed by 5 mg/ kg every 8 weeks Additional problems managed by primary hospitalist: -Hypertension, chronic. -MASON, chronic . Pain Evaluation: Adequate Pain Control VTE Prophylaxis: Sub-Q Heparin (Unfractionated) VTE Mechanical Devices: Intermittant Pneumatic CD Resuscitation Status: CPR: Attempt Resuscitation Janice Barros DO Apr 02, 2017 09:41
[2017-04-02 10:10] VITALS: BP 120/73; PULSE 95; RESP 18; O2SAT 94
--- NOTE | 2017-04-02 10:52 | PCM.DC.SUR ---
Discharge Summary Date of Service: Apr 02, 2017 Date of Hospital Admission: Mar 28, 2017 at 19:58 Date of Operation(s): 03/28/2017 Date of Discharge: 04/02/2017 Diagnosis at Time of Discharge 1. Distal sigmoid stricture. 2. Anamika's procedure. 3. Crohn's disease. Problems: (1) Encounter for ostomy care education Status: Acute ICD Code: Z71.89 (2) Crohns disease Qualifiers: Digestive disease complication type: with fistula Status: Acute ICD Code: K50.90 Operation Laparoscopic sigmoid colectom with Anamika's procedure. Perirectal fistula seton placement. Brief History and Physical: Stanley Palmer is a 31-year-old gentleman with a history of hypertension, obstructive sleep apnea treated with CPAP, and Crohn's disease since the age of 11 complicated by perirectal abscesses and fistulas while on Remicade who presented to [facility] for bowel resection after outpatient evaluation revealed a sigmoid colon stricture at 30cm from the anus. In the past, the patient has tried 6-mercaptopurine and prednisone, Pentasa, Asacol, and Imuran without any relief. He was reportedly placed on Remicade at age 20 which was stopped for six months and he was placed on Humira instead but he is unsure why. Then in 2014 he was started back on Remicade and had been receiving this every 8 weeks prior to admission. Patient reports 6-8 bowel movements per day at baseline that are typically loose and non-bloody. He has a history of perirectal abscesses and fistulas that have required multiple incision and drainages. Most recently he was seen at [facility] and underwent incision and drainage of perirectal abscess on 01/21. At that time a CT scan showed thickening of the terminal ileum and inflammatory changes from the transverse colon to the proximal sigmoid colon. He states that he continued to have symptoms and on a colonoscopy showed a stricture in the sigmoid colon 30cm from the anus. He is now recovered from a laprascopic left colon and sigmoid colon resection with colostomy. His abdominal pain is well controlled on oral medications. He is tolerating a regular diet without nausea or vomiting. He denies fever, chills, and chest pain. He has had excellent ostomy output. Consultants: Gastroenterology Hospital Course: Emigdio underwent a laparoscopic sigmoid colectomy with Anamika's procedure, flexible sigmoidoscopy and perirectal fistula seton placement. He recovered on the enhanced recovery after surgery pathway with advancement to a regular diet, pain control on oral medications, received ostomy care teaching and is now emptying his own bag, reviewed nutritional recommendations, ambulating around the unit, breathing comfortably on room air, and has met all goals for safe discharge home. He did require oxygen via nasal cannula for 4 days but was successfully weaned off of oxygen without desaturations. Both his mom and grandma will be helping to care for him at home for 1-2 weeks until he adjusts to ostomy self care and recovers from surgery. We reviewed all home care instructions and answered all questions prior to discharge home. Pathology: Pending Disposition: Discharge home. Follow-up Plan: Follow up in General Surgery clinic with Dr. Negrita Rivas in 2-3 weeks. Follow up with Gastroenterology in 2-3 weeks as well. (["eco-drink"]) Unknown Dose DAILY (Reported) Acetaminophen (Acetaminophen) 325 Mg Tablet 650 MG PO Q4H PRN PRN For Pain ( Reported) Amlodipine (Amlodipine) 10 Mg Tablet 10 MG PO DAILY (Reported) Polyethylene Glycol 3350 (Miralax) 17 Gm Powd.pack 17 GM PO NOON PRN PRN For Constipation oxyCODONE (oxyCODONE) 5 Mg Tablet 5 MG PO Q6H PRN PRN For Moderate Pain copies to: Maria Eugenia Melgar; Ulises Barclay MD, Shanley B MD Apr 02, 2017 10:52
--- NOTE | 2017-04-02 11:50 | NUR ---
Social Work-Discharge Data: EMR reviewed. Pt is on day 5 of hospitalization for sigmoid colon stricture per H&P. Pt discussed in multidisciplinary rounds, pt is medically ready for discharge. Surgical Services Manager to see pt and confirm independence with ostomy prior to d/c. Discharge orders are active. SW met with pt at bedside to discuss discharge plan. Pt confirms that his mother will be transporting home at discharge. Pt declined any questions or concerns related to discharge. Pt declined any additional needs. Assessment: Pt who is independent at baseline. Plan: Pt's mother to transport home at d/c and be available to assist. Pt declined any questions or concerns related to discharge. Pt declined any additional needs. No additional needs identified from UPKEEP WORKER. Tammy Castro MSW
[2017-04-02] MEDS: Polyethylene Glycol (PEG) 17 Gm Powder PO SCH (12:00)
--- NOTE | 2017-04-02 14:19 | NUR ---
Inpatient Ostomy Nurse Time spent with patient and his mother and grandmother, reviewing ostomy care and system change. Patient was shown how to cut wafer to fit his oval stoma, as all our director of application development templates are for round stomas. Skin prep and pouch change were reviewed. Mom and grandmother were participatory and stated understanding of information provided. Patient was minimally participatory, unable to focus for more than a couple of minutes, interrupted CWON multiple times with off-topic questions. Patient mother was given supplies (5 Coloplast pouches and wafers) and appointment card for Saturday, 04/12 at 3 pm at [facility] with DAMIEN Dorman.
--- NOTE | 2017-04-02 16:11 | NUR ---
Discharge Orders for discharge were received. The patient was made aware of the plan for discharge and was agreeable to go. The patient was given information, teaching and handouts on his diagnosis and treatment, signs and symptoms to be aware of, follow up instructions, wound care directions, activity restrictions, information regarding ostomy care as well as scripts for new medications with teaching and handouts on the new medication. The patient signified understanding of this information, verified using the teach back method. The patient's asymptomatic IV was removed intact and the patient was dressed in his own clothing. The patient's belongings were gathered and the patient denied any medications in the hospital pharmacy or belongings in the hospital safe. The patient then ambulated into a wheelchair which took him to the main entrance where he entered a private family vehicle. At the time of discharge the patient was alert and oriented, with no complaint of out of control pain, nausea, chest pain or difficulty, with ostomy and surgical sites clean, dry and intact.
--- NOTE | 2017-04-04 07:54 | PATH ---
SURGICAL PATHOLOGY Attending Physician:Negrita Rivas MD CASE STATUS: Signed Out PATIENT NAME: JENNY BAILEY PID: [id number] : 1985 DATE COLLECTED:03/28/2017 00:00 SPECIMEN: 1: Colon, Segment Resection, Non-Tumor 2: Colon, Segment Resection, Non-Tumor CLINICAL HISTORY: SIGMOID COLON STRICTURE 1). SIGMOID COLON 2). LEFT COLON FINAL DIAGNOSIS: 1. Sigmoid Colon, Segmental Resection: Segment of colon with: Chronic colitis with moderate to severe activity. Prominent lymphoid aggregates of submucosa and muscularis propria. Negative for granulomata, dysplasia or malignancy. 2. Left Colon, Segmental Resection: Segment of colon with: Gross stricture. Chronic colitis with moderate to severe activity. Prominent lymphoid aggregates of submucosa and muscularis propria. Transmural fissures with nonnecrotizing granulomas and predominantly lymphohistiocytic inflammation. Negative for dysplasia or malignancy. ICD10: K50.9 NOTE: Overall, the findings in this case are consistent with the clinical diagnosis of Crohn's disease. GROSS DESCRIPTION: The specimens are received in formalin, labeled with the patient's name, and sublabeled as the following: (1) sigmoid colon, distal stitch long, proximal stitch short x2; (2) left colon, distal stitch long, proximal stitch short x2. (1) The specimen consists of a segment of colon (length-8.5 cm, proximal diameter-2.5 cm, distal diameter-3.0 cm) with attached adipose tissue (up to 4.3 cm in depth). The specimen is oriented with 2 black sutures (short x2- proximal, long-distal). The resection margins are received stapled. The segment has thickened hester renato and distorting the segment. The wall perforated upon opening the lumen. The mucosa is rowe, focally dark brown, and is diffusely bosselated. No normal folds are identified. No nodules or masses are identified. Ink code: black-resection margin. Section code: (1A) proximal resection margin, longitudinally sectioned, hardware supplies sales representative; (1B) distal resection margin, longitudinally sectioned, hardware supplies sales representative; (1C-1H) colon segment, serially sectioned and submitted proximal to distal, hardware supplies sales representative. (2) The specimen consists of a segment of colon (length-14.5 cm, proximal diameter-3.8 cm, distal diameter-1.8 cm) with attached adipose tissue (up to 5.0 cm in depth). The specimen is oriented with 2 black sutures (short x2- proximal, long-distal). The resection margins are received stapled. The segment has thickened hester and rowe diffusely bosselated mucosa. 7.0 cm from the proximal resection margin, the segment is significantly stenotic and continues to narrow involving the distal resection margin. No normal folds are identified. No nodules or masses are identified. Ink code: black-resection margin. Section code: (2A) proximal resection margin, longitudinally sectioned, hardware supplies sales representative; (2B) distal resection margin, longitudinally sectioned, hardware supplies sales representative; (2C-2J) colon segment, serially sectioned and submitted proximal to distal, hardware supplies sales representative. 04/02/17 ICD-9 CODES: CPT CODES: 1: 08239 2: [id number] Electronically Signed Out Steven Beckham MD, Ph.D. [facility] Pathology [facility] [address], [place] [address] Technical component performed at [facility], [facility] [address], [place], [address]
== END 2017-04-02 14:35 | disposition home or self-care (01) | DRG 330 ==
LOC: SAS 07:08 → OSC 19:58
PROVIDERS: ADMIT Surgery; ATTEND Internal Medicine Gastroenterology
PROC: 0DTG0ZZ Resection of Left Large Intestine, Open Approach (ICD-10-PCS; principal; 2017-03-28 09:15)
PROC: 0D1N0Z4 Bypass Sigmoid Colon to Cutaneous, Open Approach (ICD-10-PCS; 2017-03-28 09:15)
DX: K50.113 Crohn's disease of large intestine with fistula (principal); K56.69 Other intestinal obstruction; K61.0 Anal abscess; G47.33 Obstructive sleep apnea (adult) (pediatric)